=== PATIENT | male | born 1955 ===

== ENCOUNTER 2017-04-22 15:24 | Inpatient (IN) ==
[2017-04-22] MEDS ORDERED: ACETAMINOPHEN 325 MG TABLET PO PRN (15:46)
[2017-04-22] MEDS ORDERED: ONDANSETRON 4 MG/2 ML VIAL IV PRN (15:46)
[2017-04-22] MEDS ORDERED: GLUCAGON 1 MG VIAL IM PRN (15:52)
[2017-04-22] MEDS ORDERED: ALUMINUM/MAGNES/SIMETH MAX STR 30 ML UDCUP PO PRN (15:52)
[2017-04-22] MEDS ORDERED: BISACODYL 5 MG TABLET PO PRN (15:52)
[2017-04-22] MEDS ORDERED: DEXTROSE 50% 25 GM/50 ML VIAL IV PRN (15:52)
[2017-04-22] MEDS ORDERED: SKIN HEALING OINT (AQUAPHOR) 50 GM TUBE TOP PRN (16:09)
[2017-04-22] MEDS ORDERED: CHLORHEXIDINE 4% SOLN 118 ML BOTTLE TOP ONE (16:09)
[2017-04-22 18:04] LABS: Basophils # 0.1 10*3/uL (0.0-0.2); Basophils % 0.5 % (0.0-0.8); Eosinophils # 0.3 10*3/uL (0.0-0.87); Eosinophils % 2.3 % (0.00-10.9); Hemoglobin 12.4 GM/DL (14.0-18.0); Immature Granulocytes % 0.8 %; Immature Granulocytes Absolute 0.09 #; Lymphocytes # 1.9 10*3/uL (1.4-4.0); Lymphocytes % 17.5 % (21.2-54.2); Mean Corpuscular HGB Conc 33.5 GM/DL (32-36); Mean Corpuscular Hemoglobin 29 PG (27-34); Mean Corpuscular Volume 85.8 FL (87-102); Mean Platelet Volume 10.7 FL (9.6-12.0); Monocytes % 9.1 % (1.7-12.7); Neutrophils # 7.7 10*3/uL (1.4-7.4); Neutrophils % 69.8 % (38.7-73.9); Platelet Count 241 T/CUMM (130-400); Red Blood Count 4.31 MC/CUMM (3.8-5.5); Red Cell Distribution Width 13.8 % (9.3-17.3)
[2017-04-22 18:27] LABS: Alanine Aminotransferase 28 U/L (16-61); Albumin 3.4 G/DL (3.4-5.0); Alkaline Phosphatase 200 U/L (45-117); Aspartate Amino Transferase 25 U/L (0-37); Bilirubin,Total < 0.39 MG/DL (0.2-1.0); Blood Urea Nitrogen 19 MG/DL (7-18); Glucose 168 MG/DL (74-106); Osmolality,Calculated 278.8 MOS/KG (273-304); Potassium 4.2 MMOL/L (3.5-5.1); Sodium 137 MMOL/L (136-145); Total Protein 7.7 G/DL (6.4-8.3)
[2017-04-22] MEDS ORDERED: hydrALAZINE 20 MG/1 ML VIAL IV PRN (18:51)
[2017-04-22] MEDS: INSULIN REGULAR 100 UNIT/ML SUBCUT SCH ×2 (19:30→20:31)
[2017-04-22] MEDS: SODIUM CHLORIDE 0.45% 1,000 ML IV SCH (20:30)
[2017-04-22] MEDS: INSULIN GLARGINE 100 UNIT/ML SUBCUT SCH (20:31)
[2017-04-22] MEDS: METOPROLOL SUCCINATE XL 100 MG TABLET PO SCH (20:31)
[2017-04-22] MEDS: GABAPENTIN 100 MG CAPSULE PO SCH (20:31)
[2017-04-22] MEDS: SIMVASTATIN 20 MG TABLET PO SCH (20:31)
[2017-04-22] MEDS: glyBURIDE 5 MG TABLET PO SCH (20:31)
[2017-04-22] MEDS: CEFTAROLINE 600 MG in SODIUM CHLORIDE 0.9% 100 ML IV SCH (20:31)
[2017-04-23] MEDS: SODIUM HYPOCHLORITE 0.25% IRRIG 473 ML BOTTLE TOP SCH (08:07)
[2017-04-23] MEDS: glyBURIDE 5 MG TABLET PO SCH (08:07)
[2017-04-23] MEDS: ASPIRIN EC 81 MG TABLET PO SCH (08:07)
[2017-04-23] MEDS: INSULIN REGULAR 100 UNIT/ML SUBCUT SCH ×4 (08:07→21:42)
[2017-04-23] MEDS: GABAPENTIN 100 MG CAPSULE PO SCH ×2 (08:08→21:27)
[2017-04-23] MEDS: PANTOPRAZOLE 40 MG TABLET PO SCH (08:08)
[2017-04-23] MEDS: amLODIPine 10 MG TABLET PO SCH (08:50)
[2017-04-23] MEDS: CEFTAROLINE 600 MG in SODIUM CHLORIDE 0.9% 100 ML IV SCH ×2 (08:50→21:33)
[2017-04-23] MEDS: METOPROLOL SUCCINATE XL 100 MG TABLET PO SCH ×2 (08:50→21:28)
[2017-04-23] MEDS: SODIUM CHLORIDE 0.45% 1,000 ML IV SCH ×2 (08:51→21:43)
[2017-04-23] MEDS ORDERED: sitaGLIPtin 100 MG TABLET PO SCH (09:00)
[2017-04-23] MEDS ORDERED: LISINOPRIL 10 MG TABLET PO SCH (09:00)
[2017-04-23] MEDS ORDERED: BACITRACIN OINT 0.9 GM PACK TOP ONE (11:35)
[2017-04-23] MEDS ORDERED: HYDROmorphone 2 MG/1 ML VIAL IV PRN (11:57)
[2017-04-23] MEDS ORDERED: PROPOFOL 200 MG/20 ML VIAL IV ONE (12:29)
[2017-04-23] MEDS ORDERED: fentaNYL 100 MCG/2 ML VIAL ONE (12:29)
[2017-04-23] MEDS ORDERED: ONDANSETRON 4 MG/2 ML VIAL ONE (12:30)
[2017-04-23] MEDS ORDERED: MIDAZOLAM 2 MG/2 ML VIAL ONE (12:30)
[2017-04-23] MEDS ORDERED: SODIUM CHLORIDE 0.9% 100 ML IV ONE (12:30)
[2017-04-23] MEDS: LISINOPRIL 10 MG TABLET PO SCH (21:27)
[2017-04-23] MEDS: SIMVASTATIN 20 MG TABLET PO SCH (21:28)
[2017-04-23] MEDS: INSULIN GLARGINE 100 UNIT/ML SUBCUT SCH (21:30)
[2017-04-24] MEDS: SODIUM CHLORIDE 0.45% 1,000 ML IV SCH ×2 (03:21→19:53)
[2017-04-24 05:41] LABS: Calcium 8.2 MG/DL (8.5-10.1); Osmolality,Calculated 276.5 MOS/KG (273-304); Potassium 3.7 MMOL/L (3.5-5.1)
[2017-04-24 06:37] LABS: Basophils # 0.1 10*3/uL (0.0-0.2); Basophils % 0.6 % (0.0-0.8); Eosinophils # 0.2 10*3/uL (0.0-0.87); Eosinophils % 2.5 % (0.00-10.9); Hemoglobin 11.7 GM/DL (14.0-18.0); Immature Granulocytes % 1.2 %; Lymphocytes # 1.9 10*3/uL (1.4-4.0); Lymphocytes % 22.8 % (21.2-54.2); Mean Corpuscular HGB Conc 33.4 GM/DL (32-36); Mean Corpuscular Hemoglobin 28 PG (27-34); Mean Corpuscular Volume 84.7 FL (87-102); Neutrophils # 5.1 10*3/uL (1.4-7.4); Neutrophils % 60.9 % (38.7-73.9); Platelet Count 219 T/CUMM (130-400); Red Blood Count 4.13 MC/CUMM (3.8-5.5); Red Cell Distribution Width 13.8 % (9.3-17.3); White Blood Count 8.4 T/CUMM (4-12)
[2017-04-24] MEDS: INSULIN REGULAR 100 UNIT/ML SUBCUT SCH ×4 (08:46→20:09)
[2017-04-24] MEDS: ASPIRIN EC 81 MG TABLET PO SCH (09:23)
[2017-04-24] MEDS: GABAPENTIN 100 MG CAPSULE PO SCH ×2 (09:23→20:06)
[2017-04-24] MEDS: METOPROLOL SUCCINATE XL 100 MG TABLET PO SCH ×2 (09:24→20:06)
[2017-04-24] MEDS: LISINOPRIL 10 MG TABLET PO SCH ×2 (09:24→20:06)
[2017-04-24] MEDS: PANTOPRAZOLE 40 MG TABLET PO SCH (09:24)
[2017-04-24] MEDS: amLODIPine 10 MG TABLET PO SCH (09:24)
[2017-04-24] MEDS: ENOXAPARIN 40 MG/0.4 ML SYRINGE SUBCUT SCH (09:24)
[2017-04-24] MEDS: CEFTAROLINE 600 MG in SODIUM CHLORIDE 0.9% 100 ML IV SCH ×2 (10:15→19:43)
[2017-04-24] MEDS: SODIUM HYPOCHLORITE 0.25% IRRIG 473 ML BOTTLE TOP SCH (13:00)
[2017-04-24] MEDS: SIMVASTATIN 20 MG TABLET PO SCH (20:06)
[2017-04-24] MEDS: INSULIN GLARGINE 100 UNIT/ML SUBCUT SCH (20:09)
[2017-04-25 06:17] LABS: Risk Ratio 3.43; VLDL CHOLESTEROL 19.2 MG/DL
[2017-04-25] MEDS: INSULIN REGULAR 100 UNIT/ML SUBCUT SCH ×4 (08:08→21:20)
[2017-04-25] MEDS: PANTOPRAZOLE 40 MG TABLET PO SCH (08:34)
[2017-04-25] MEDS: amLODIPine 10 MG TABLET PO SCH (08:34)
[2017-04-25] MEDS: METOPROLOL SUCCINATE XL 100 MG TABLET PO SCH ×2 (08:34→21:20)
[2017-04-25] MEDS: LISINOPRIL 10 MG TABLET PO SCH ×2 (08:34→21:19)
[2017-04-25] MEDS: ENOXAPARIN 40 MG/0.4 ML SYRINGE SUBCUT SCH (08:34)
[2017-04-25] MEDS: GABAPENTIN 100 MG CAPSULE PO SCH ×2 (08:34→21:20)
[2017-04-25] MEDS: ASPIRIN EC 81 MG TABLET PO SCH (08:34)
[2017-04-25] MEDS: CEFTAROLINE 600 MG in SODIUM CHLORIDE 0.9% 100 ML IV SCH ×2 (08:37→21:22)
[2017-04-25] MEDS: SODIUM HYPOCHLORITE 0.25% IRRIG 473 ML BOTTLE TOP SCH (11:27)
[2017-04-25] MEDS: SODIUM CHLORIDE 0.45% 1,000 ML IV SCH ×2 (13:29→19:30)
[2017-04-25] MEDS: SIMVASTATIN 20 MG TABLET PO SCH (21:19)
[2017-04-25] MEDS: INSULIN GLARGINE 100 UNIT/ML SUBCUT SCH (21:20)
[2017-04-26] MEDS: SODIUM CHLORIDE 0.45% 1,000 ML IV SCH ×2 (05:20→22:32)
[2017-04-26] MEDS: INSULIN REGULAR 100 UNIT/ML SUBCUT SCH ×4 (08:48→21:21)
[2017-04-26] MEDS: CEFTAROLINE 600 MG in SODIUM CHLORIDE 0.9% 100 ML IV SCH (09:50)
[2017-04-26] MEDS: METOPROLOL SUCCINATE XL 100 MG TABLET PO SCH ×2 (09:54→21:22)
[2017-04-26] MEDS: ASPIRIN EC 81 MG TABLET PO SCH (09:55)
[2017-04-26] MEDS: LISINOPRIL 10 MG TABLET PO SCH ×2 (09:55→21:22)
[2017-04-26] MEDS: amLODIPine 10 MG TABLET PO SCH (09:55)
[2017-04-26] MEDS: GABAPENTIN 100 MG CAPSULE PO SCH ×2 (09:55→21:22)
[2017-04-26] MEDS: LEVOFLOXACIN 500 MG TABLET PO SCH (09:55)
[2017-04-26] MEDS: PANTOPRAZOLE 40 MG TABLET PO SCH (09:55)
[2017-04-26] MEDS: ENOXAPARIN 40 MG/0.4 ML SYRINGE SUBCUT SCH (09:56)
[2017-04-26] MEDS: SODIUM HYPOCHLORITE 0.25% IRRIG 473 ML BOTTLE TOP SCH (14:09)
[2017-04-26] MEDS: CEFTAROLINE 600 MG in SODIUM CHLORIDE 0.9% 50 ML IV SCH (21:20)
[2017-04-26] MEDS: INSULIN GLARGINE 100 UNIT/ML SUBCUT SCH (21:21)
[2017-04-26] MEDS: SIMVASTATIN 20 MG TABLET PO SCH (21:22)
[2017-04-27 06:26] LABS: Basophils % 0.6 % (0.0-0.8); Eosinophils # 0.3 10*3/uL (0.0-0.87); Eosinophils % 4.1 % (0.00-10.9); Hematocrit 32.9 VOL% (42.0-52.0); Hemoglobin 11.4 GM/DL (14.0-18.0); Immature Granulocytes % 0.3 %; Immature Granulocytes Absolute 0.02 #; Lymphocytes # 1.5 10*3/uL (1.4-4.0); Lymphocytes % 21.7 % (21.2-54.2); Mean Corpuscular HGB Conc 34.7 GM/DL (32-36); Mean Corpuscular Hemoglobin 29 PG (27-34); Mean Corpuscular Volume 83.3 FL (87-102); Monocytes # 0.8 10*3/uL (0.11-0.8); Monocytes % 11.5 % (1.7-12.7); Neutrophils # 4.2 10*3/uL (1.4-7.4); Neutrophils % 61.8 % (38.7-73.9); Platelet Count 247 T/CUMM (130-400); Red Blood Count 3.95 MC/CUMM (3.8-5.5); Red Cell Distribution Width 13.9 % (9.3-17.3); White Blood Count 6.8 T/CUMM (4-12)
[2017-04-27] MEDS: METOPROLOL SUCCINATE XL 100 MG TABLET PO SCH ×3 (06:32→20:50)
[2017-04-27] MEDS: LISINOPRIL 10 MG TABLET PO SCH ×3 (06:32→20:50)
[2017-04-27] MEDS: amLODIPine 10 MG TABLET PO SCH ×2 (06:32→09:17)
[2017-04-27] MEDS ORDERED: BUPIVACAINE 0.25% 50 ML VIAL ONE (06:42)
[2017-04-27 07:02] LABS: Alanine Aminotransferase 19 U/L (16-61); Albumin 2.7 G/DL (3.4-5.0); Alkaline Phosphatase 140 U/L (45-117); Aspartate Amino Transferase 17 U/L (0-37); Bilirubin,Total < 0.39 MG/DL (0.2-1.0); Blood Urea Nitrogen 12 MG/DL (7-18); Glucose 180 MG/DL (74-106); Osmolality,Calculated 283.4 MOS/KG (273-304); Potassium 3.9 MMOL/L (3.5-5.1); Sodium 140 MMOL/L (136-145); Total Protein 6.5 G/DL (6.4-8.3)
[2017-04-27] MEDS ORDERED: GENTAMICIN 0.1% CREAM 15 GM TUBE TOP ONE (07:44)
[2017-04-27] MEDS ORDERED: CHLORHEXIDINE 4% SOLN 118 ML BOTTLE TOP ONE (08:00)
[2017-04-27] MEDS ORDERED: PROPOFOL 200 MG/20 ML VIAL IV ONE (08:13)
[2017-04-27] MEDS ORDERED: SEVOFLURANE 1 UNIT/15 MINUTE INH ONE (08:13)
[2017-04-27] MEDS ORDERED: METOCLOPRAMIDE 10 MG/2 ML VIAL ONE (08:14)
[2017-04-27] MEDS ORDERED: fentaNYL 100 MCG/2 ML VIAL ONE (08:14)
[2017-04-27] MEDS ORDERED: ONDANSETRON 4 MG/2 ML VIAL ONE (08:14)
[2017-04-27] MEDS: INSULIN REGULAR 100 UNIT/ML SUBCUT SCH ×4 (09:13→20:51)
[2017-04-27] MEDS: CEFTAROLINE 600 MG in SODIUM CHLORIDE 0.9% 50 ML IV SCH ×2 (09:56→20:49)
[2017-04-27] MEDS: GABAPENTIN 100 MG CAPSULE PO SCH ×2 (09:58→20:50)
[2017-04-27] MEDS: ENOXAPARIN 40 MG/0.4 ML SYRINGE SUBCUT SCH (09:58)
[2017-04-27] MEDS: PANTOPRAZOLE 40 MG TABLET PO SCH (09:59)
[2017-04-27] MEDS: LEVOFLOXACIN 500 MG TABLET PO SCH (09:59)
[2017-04-27] MEDS: ASPIRIN EC 81 MG TABLET PO SCH (09:59)
[2017-04-27] MEDS: GENTAMICIN 0.1% OINT 15 GM TUBE TOP SCH ×3 (13:00→20:58)
[2017-04-27] MEDS: SODIUM CHLORIDE 0.45% 1,000 ML IV SCH (13:00)
[2017-04-27 18:32] LABS: Apearance,Urine CLEAR (Clear); Bilirubin,Urine Negative (Negative); Blood, Urine Small mg/dL (Negative); Glucose,Urine (UA) >=500 mg/dL (Negative); Ketones,Urine Negative (Negative); Nitrite,Urine Negative (Negative); Protein,Urine Negative; RBC,Urine 1 /HPF (0-4); Urine Color Straw (Yellow); Urine Specific Gravity 1.008 (1.001-1.035)
[2017-04-27] MEDS: SIMVASTATIN 20 MG TABLET PO SCH (20:51)
[2017-04-27] MEDS: INSULIN GLARGINE 100 UNIT/ML SUBCUT SCH (20:51)
[2017-04-28] MEDS: SODIUM CHLORIDE 0.45% 1,000 ML IV SCH (01:29)
[2017-04-28 06:57] LABS: Basophils % 0.5 % (0.0-0.8); Eosinophils # 0.3 10*3/uL (0.0-0.87); Eosinophils % 4.2 % (0.00-10.9); Hemoglobin 10.8 GM/DL (14.0-18.0); Immature Granulocytes % 0.4 %; Immature Granulocytes Absolute 0.03 #; Lymphocytes # 1.7 10*3/uL (1.4-4.0); Mean Corpuscular HGB Conc 33.8 GM/DL (32-36); Mean Corpuscular Hemoglobin 29 PG (27-34); Mean Corpuscular Volume 85.3 FL (87-102); Mean Platelet Volume 10.6 FL (9.6-12.0); Monocytes % 12.6 % (1.7-12.7); Neutrophils # 4.8 10*3/uL (1.4-7.4); Neutrophils % 60.3 % (38.7-73.9); Platelet Count 238 T/CUMM (130-400); Red Blood Count 3.75 MC/CUMM (3.8-5.5); White Blood Count 7.9 T/CUMM (4-12)
[2017-04-28 07:33] LABS: Calcium 8.1 MG/DL (8.5-10.1); Osmolality,Calculated 279.4 MOS/KG (273-304); Potassium 3.8 MMOL/L (3.5-5.1)
[2017-04-28] MEDS: INSULIN REGULAR 100 UNIT/ML SUBCUT SCH ×2 (08:15→12:10)
[2017-04-28] MEDS: GENTAMICIN 0.1% OINT 15 GM TUBE TOP SCH (08:15)
[2017-04-28] MEDS: METOPROLOL SUCCINATE XL 100 MG TABLET PO SCH (09:12)
[2017-04-28] MEDS: ASPIRIN EC 81 MG TABLET PO SCH (09:13)
[2017-04-28] MEDS: LEVOFLOXACIN 500 MG TABLET PO SCH (09:13)
[2017-04-28] MEDS: GABAPENTIN 100 MG CAPSULE PO SCH (09:13)
[2017-04-28] MEDS: LISINOPRIL 10 MG TABLET PO SCH (09:14)
[2017-04-28] MEDS: amLODIPine 10 MG TABLET PO SCH (09:14)
[2017-04-28] MEDS: PANTOPRAZOLE 40 MG TABLET PO SCH (09:14)
[2017-04-28] MEDS: CEFTAROLINE 600 MG in SODIUM CHLORIDE 0.9% 50 ML IV SCH (09:14)
[2017-04-28] MEDS: ENOXAPARIN 40 MG/0.4 ML SYRINGE SUBCUT SCH (09:16)
[2017-04-28 11:12] VITALS: BP 148/70
== END 2017-04-28 12:10 | disposition home or self-care (01) | DRG 623 ==
LOC: N.3E 16:02
PROVIDERS: ADMIT Specialist; ATTEND Specialist

== ENCOUNTER 2017-06-16 06:13 | Inpatient (IN) ==
[2017-06-14 11:32] LABS: Basophils % 0.4 % (0.0-0.8); Eosinophils # 0.2 10*3/uL (0.0-0.87); Eosinophils % 2.2 % (0.00-10.9); Hematocrit 34.8 VOL% (42.0-52.0); Hemoglobin 11.7 GM/DL (14.0-18.0); Immature Granulocytes % 0.4 %; Immature Granulocytes Absolute 0.04 #; Lymphocytes # 1.8 10*3/uL (1.4-4.0); Lymphocytes % 17.5 % (21.2-54.2); Mean Corpuscular HGB Conc 33.6 GM/DL (32-36); Mean Corpuscular Hemoglobin 29 PG (27-34); Mean Corpuscular Volume 85.9 FL (87-102); Mean Platelet Volume 10.3 FL (9.6-12.0); Monocytes # 0.8 10*3/uL (0.11-0.8); Monocytes % 7.6 % (1.7-12.7); Neutrophils # 7.5 10*3/uL (1.4-7.4); Neutrophils % 71.9 % (38.7-73.9); Platelet Count 259 T/CUMM (130-400); Red Blood Count 4.05 MC/CUMM (3.8-5.5); White Blood Count 10.5 T/CUMM (4-12)
[2017-06-14 12:24] LABS: Alanine Aminotransferase 19 U/L (16-61); Albumin 3.3 G/DL (3.4-5.0); Alkaline Phosphatase 192 U/L (45-117); Aspartate Amino Transferase 17 U/L (0-37); Bilirubin,Total < 0.39 MG/DL (0.2-1.0); Blood Urea Nitrogen 15 MG/DL (7-18); Calcium 8.5 MG/DL (8.5-10.1); Glucose 305 MG/DL (74-106); Osmolality,Calculated 281.1 MOS/KG (273-304); Potassium 3.9 MMOL/L (3.5-5.1); Sodium 135 MMOL/L (136-145); Total Protein 7.5 G/DL (6.4-8.3)
[~2017-06-16 06:13] MED LIST: LEVOFLOXACIN INJ 100 ML IV ONE; LEVOFLOXACIN INJ 500 MG in PREMIX 1 EACH IV ONE
[2017-06-16] MEDS: LACTATED RINGERS 1,000 ML IV SCH (07:14)
[2017-06-16] MEDS ORDERED: FAMOTIDINE 20 MG TABLET PO ONE (07:56)
[2017-06-16] MEDS ORDERED: DIAZEPAM 5 MG TABLET PO ONE (07:56)
[2017-06-16] MEDS ORDERED: FAMOTIDINE 20 MG TABLET ONE (08:00)
[2017-06-16] MEDS ORDERED: DIAZEPAM 5 MG TABLET ONE (08:00)
[2017-06-16] MEDS ORDERED: BENZOIN COMPOUND TINCTURE 58 ML BOTTLE TOP ONE (12:13)
[2017-06-16] MEDS ORDERED: BISACODYL 5 MG TABLET PO PRN (12:17)
[2017-06-16] MEDS ORDERED: DEXTROSE 50% 25 GM/50 ML VIAL IV PRN (12:17)
[2017-06-16] MEDS ORDERED: ONDANSETRON 4 MG/2 ML VIAL IV PRN (12:17)
[2017-06-16] MEDS ORDERED: HYDROmorphone 2 MG/1 ML VIAL IV PRN (12:17)
[2017-06-16] MEDS ORDERED: GLUCAGON 1 MG VIAL IM PRN (12:17)
[2017-06-16] MEDS ORDERED: ACETAMINOPHEN 325 MG TABLET PO PRN (12:17)
[2017-06-16] MEDS ORDERED: SKIN HEALING OINT (AQUAPHOR) 50 GM TUBE TOP PRN (12:29)
[2017-06-16] MEDS ORDERED: CHLORHEXIDINE 4% SOLN 118 ML BOTTLE TOP ONE (12:29)
[2017-06-16] MEDS ORDERED: PROPOFOL 200 MG/20 ML VIAL IV ONE (12:45)
[2017-06-16] MEDS ORDERED: fentaNYL 100 MCG/2 ML VIAL ONE (12:46)
[2017-06-16] MEDS ORDERED: MIDAZOLAM 2 MG/2 ML VIAL ONE (12:46)
[2017-06-16] MEDS ORDERED: KETAMINE 500 MG/10 ML VIAL ONE (12:47)
[2017-06-16 15:51] LABS: Troponin I Only < 0.015 NG/ML (0.00-0.045)
[2017-06-16] MEDS: SODIUM CHLORIDE 0.9% 1,000 ML IV SCH (16:24)
[2017-06-16] MEDS: INSULIN REGULAR 100 UNIT/ML SUBCUT SCH ×2 (17:11→20:48)
[2017-06-16 18:08] LABS: Troponin I Only < 0.015 NG/ML (0.00-0.045)
[2017-06-16] MEDS: amLODIPine 10 MG TABLET PO SCH (20:33)
[2017-06-16] MEDS: LISINOPRIL 10 MG TABLET PO SCH (20:33)
[2017-06-16] MEDS: METOPROLOL SUCCINATE XL 100 MG TABLET PO SCH (20:34)
[2017-06-16] MEDS: glyBURIDE 5 MG TABLET PO SCH (20:34)
[2017-06-16] MEDS: GABAPENTIN 100 MG CAPSULE PO SCH (20:34)
[2017-06-16] MEDS: INSULIN GLARGINE 100 UNIT/ML SUBCUT SCH (20:47)
[2017-06-16] MEDS: SIMVASTATIN 20 MG TABLET PO SCH (20:48)
[2017-06-16 21:18] LABS: Troponin I Only < 0.015 NG/ML (0.00-0.045)
[2017-06-17] MEDS: SODIUM CHLORIDE 0.9% 1,000 ML IV SCH ×2 (01:21→04:59)
[2017-06-17 05:32] LABS: Basophils # 0.1 10*3/uL (0.0-0.2); Basophils % 0.5 % (0.0-0.8); Eosinophils # 0.2 10*3/uL (0.0-0.87); Eosinophils % 1.5 % (0.00-10.9); Hematocrit 32.8 VOL% (42.0-52.0); Immature Granulocytes % 0.2 %; Immature Granulocytes Absolute 0.02 #; Lymphocytes % 19.9 % (21.2-54.2); Mean Corpuscular HGB Conc 33.5 GM/DL (32-36); Mean Corpuscular Hemoglobin 28 PG (27-34); Mean Corpuscular Volume 84.3 FL (87-102); Mean Platelet Volume 10.5 FL (9.6-12.0); Monocytes % 10.2 % (1.7-12.7); Neutrophils # 6.7 10*3/uL (1.4-7.4); Neutrophils % 67.7 % (38.7-73.9); Platelet Count 267 T/CUMM (130-400); Red Blood Count 3.89 MC/CUMM (3.8-5.5); Red Cell Distribution Width 13.9 % (9.3-17.3); White Blood Count 9.9 T/CUMM (4-12)
[2017-06-17 06:10] LABS: Calcium 8.7 MG/DL (8.5-10.1); Osmolality,Calculated 274.8 MOS/KG (273-304); Potassium 3.8 MMOL/L (3.5-5.1)
[2017-06-17 06:22] LABS: Risk Ratio 3.6; VLDL CHOLESTEROL 26.2 MG/DL
[2017-06-17] MEDS: LEVOFLOXACIN INJ 500 MG in PREMIX 1 EACH IV SCH (07:00)
[2017-06-17] MEDS: ENOXAPARIN 40 MG/0.4 ML SYRINGE SUBCUT SCH (07:01)
[2017-06-17] MEDS: ASPIRIN EC 81 MG TABLET PO SCH (09:25)
[2017-06-17] MEDS: glyBURIDE 5 MG TABLET PO SCH ×2 (09:25→20:55)
[2017-06-17] MEDS: GABAPENTIN 100 MG CAPSULE PO SCH ×2 (09:25→20:54)
[2017-06-17] MEDS: METOPROLOL SUCCINATE XL 100 MG TABLET PO SCH ×2 (09:25→20:59)
[2017-06-17] MEDS: PANTOPRAZOLE 40 MG TABLET PO SCH (09:25)
[2017-06-17] MEDS: sitaGLIPtin 100 MG TABLET PO SCH (09:26)
[2017-06-17] MEDS: INSULIN REGULAR 100 UNIT/ML SUBCUT SCH ×4 (09:41→20:52)
[2017-06-17] MEDS: LACTATED RINGERS 1,000 ML IV SCH (09:41)
[2017-06-17] MEDS: SODIUM HYPOCHLORITE 0.25% IRRIG 473 ML BOTTLE TOP SCH (09:42)
[2017-06-17] MEDS: INSULIN GLARGINE 100 UNIT/ML SUBCUT SCH (20:52)
[2017-06-17] MEDS: LISINOPRIL 10 MG TABLET PO SCH (20:54)
[2017-06-17] MEDS: amLODIPine 10 MG TABLET PO SCH (20:55)
[2017-06-17] MEDS: SIMVASTATIN 20 MG TABLET PO SCH (20:56)
[2017-06-18] MEDS: LEVOFLOXACIN INJ 500 MG in PREMIX 1 EACH IV SCH (06:50)
[2017-06-18] MEDS: LACTATED RINGERS 1,000 ML IV SCH (07:10)
[2017-06-18] MEDS: ENOXAPARIN 40 MG/0.4 ML SYRINGE SUBCUT SCH (07:17)
[2017-06-18] MEDS ORDERED: SKIN HEALING OINT (AQUAPHOR) 50 GM TUBE TOP PRN (07:34)
[2017-06-18] MEDS: sitaGLIPtin 100 MG TABLET PO SCH (08:29)
[2017-06-18] MEDS: GABAPENTIN 100 MG CAPSULE PO SCH (08:29)
[2017-06-18] MEDS: ASPIRIN EC 81 MG TABLET PO SCH (08:29)
[2017-06-18] MEDS: METOPROLOL SUCCINATE XL 100 MG TABLET PO SCH (08:30)
[2017-06-18] MEDS: PANTOPRAZOLE 40 MG TABLET PO SCH (08:30)
[2017-06-18] MEDS: glyBURIDE 5 MG TABLET PO SCH (08:30)
[2017-06-18] MEDS: INSULIN REGULAR 100 UNIT/ML SUBCUT SCH ×3 (08:30→16:45)
[2017-06-18] MEDS: SODIUM HYPOCHLORITE 0.25% IRRIG 473 ML BOTTLE TOP SCH (08:50)
[2017-06-18] MEDS ORDERED: SODIUM HYPOCHLORITE 0.25% IRRIG 473 ML BOTTLE TOP SCH (09:00)
[2017-06-18 17:47] VITALS: BP 152/76
== END 2017-06-18 19:05 | disposition home or self-care (01) | DRG 629 ==
LOC: N.OR 06:13 → N.SDSINP 06:14 → N.3E 12:17
PROVIDERS: ADMIT Specialist; ATTEND Specialist

== ENCOUNTER 2017-06-29 12:30 | Inpatient (IN) ==
[2017-06-29 14:02] LABS: Basophils % 0.2 % (0.0-0.8); Eosinophils % 0.1 % (0.00-10.9); Hematocrit 31.1 VOL% (42.0-52.0); Hemoglobin 10.3 GM/DL (14.0-18.0); Immature Granulocytes % 0.7 %; Immature Granulocytes Absolute 0.12 #; Lymphocytes # 1.3 10*3/uL (1.4-4.0); Lymphocytes % 7.5 % (21.2-54.2); Mean Corpuscular HGB Conc 33.1 GM/DL (32-36); Mean Corpuscular Hemoglobin 28 PG (27-34); Mean Corpuscular Volume 83.6 FL (87-102); Mean Platelet Volume 10.3 FL (9.6-12.0); Monocytes # 1.6 10*3/uL (0.11-0.8); Monocytes % 9.2 % (1.7-12.7); Neutrophils # 14.6 10*3/uL (1.4-7.4); Neutrophils % 82.3 % (38.7-73.9); Platelet Count 463 T/CUMM (130-400); Red Blood Count 3.72 MC/CUMM (3.8-5.5); Red Cell Distribution Width 14.6 % (9.3-17.3); White Blood Count 17.7 T/CUMM (4-12)
[2017-06-29] MEDS ORDERED: ONDANSETRON 4 MG/2 ML VIAL IV PRN (14:11)
[2017-06-29] MEDS ORDERED: HYDROmorphone 2 MG/1 ML VIAL IV PRN (14:11)
[2017-06-29] MEDS ORDERED: ALUMINUM/MAGNES/SIMETH MAX STR 30 ML UDCUP PO PRN (14:11)
[2017-06-29] MEDS ORDERED: ACETAMINOPHEN 325 MG TABLET PO PRN (14:11)
[2017-06-29] MEDS ORDERED: GLUCAGON 1 MG VIAL IM PRN (14:11)
[2017-06-29] MEDS ORDERED: DEXTROSE 50% 25 GM/50 ML VIAL IV PRN (14:11)
[2017-06-29 14:15] LABS: Albumin 2.5 G/DL (3.4-5.0); Bilirubin,Total 0.7 MG/DL (0.2-1.0); Calcium 8.3 MG/DL (8.5-10.1); Osmolality,Calculated 267.5 MOS/KG (273-304); Potassium 4.3 MMOL/L (3.5-5.1); Total Protein 7.4 G/DL (6.4-8.3)
[2017-06-29] MEDS ORDERED: CHLORHEXIDINE 4% SOLN 118 ML BOTTLE TOP ONE (14:31)
[2017-06-29] MEDS: GENTAMICIN 0.1% OINT 15 GM TUBE TOP SCH ×2 (16:00→21:26)
[2017-06-29] MEDS: ERGOCALCIFEROL 50,000 UNIT CAPSULE PO SCH (16:00)
[2017-06-29] MEDS: SODIUM CHLORIDE 0.45% 1,000 ML IV SCH ×2 (16:00→22:42)
[2017-06-29] MEDS: SODIUM HYPOCHLORITE 0.25% IRRIG 473 ML BOTTLE TOP SCH (16:00)
[2017-06-29] MEDS: INSULIN REGULAR 100 UNIT/ML SUBCUT SCH ×2 (16:00→21:22)
[2017-06-29] MEDS: ACETAMINOPHEN 325 MG TABLET PO PRN ×2 (16:00→23:57)
[2017-06-29] MEDS: metroNIDAZOLE INJ 500 MG in PREMIX 1 EACH IV SCH ×2 (16:00→23:08)
[2017-06-29 16:20] LABS: Apearance,Urine CLEAR (Clear); Bilirubin,Urine Negative (Negative); Blood, Urine Small mg/dL (Negative); Glucose,Urine (UA) 50 mg/dL (Negative); Ketones,Urine 20 mg/dL (Negative); Mucus,Urine Occasional /LPF (Occasional); Nitrite,Urine Negative (Negative); Protein,Urine 100 MG/DL; RBC,Urine 2 /HPF (0-4); Urine Color Yellow (Yellow); Urine Specific Gravity 1.015 (1.001-1.035); WBC,Urine 1 /HPF (0-6)
[2017-06-29] MEDS: PIPERACILLIN/TAZOBACTAM 3,375 MG in SODIUM CHLORIDE 0.9% 100 ML IV SCH (17:45)
[2017-06-29] MEDS: GABAPENTIN 100 MG CAPSULE PO SCH (21:24)
[2017-06-29] MEDS: METOPROLOL SUCCINATE XL 100 MG TABLET PO SCH (21:24)
[2017-06-29] MEDS: ACETYLCYSTEINE 600 MG CAPSULE PO SCH (21:24)
[2017-06-29] MEDS: SIMVASTATIN 20 MG TABLET PO SCH (21:25)
[2017-06-29] MEDS: DOCUSATE SODIUM 100 MG CAPSULE PO SCH (21:25)
[2017-06-29] MEDS: LISINOPRIL 10 MG TABLET PO SCH (21:25)
[2017-06-29] MEDS: amLODIPine 10 MG TABLET PO SCH (21:25)
[2017-06-29] MEDS: INSULIN GLARGINE 100 UNIT/ML SUBCUT SCH (21:25)
[2017-06-29] MEDS: glyBURIDE 5 MG TABLET PO SCH (21:25)
[2017-06-30] MEDS: PIPERACILLIN/TAZOBACTAM 3,375 MG in SODIUM CHLORIDE 0.9% 100 ML IV SCH ×3 (01:30→20:44)
[2017-06-30 05:47] LABS: Basophils # 0.1 10*3/uL (0.0-0.2); Basophils % 0.3 % (0.0-0.8); Eosinophils % 0.1 % (0.00-10.9); Hematocrit 27.8 VOL% (42.0-52.0); Hemoglobin 9.5 GM/DL (14.0-18.0); Immature Granulocytes % 0.8 %; Immature Granulocytes Absolute 0.15 #; Lymphocytes # 1.7 10*3/uL (1.4-4.0); Lymphocytes % 9.2 % (21.2-54.2); Mean Corpuscular HGB Conc 34.2 GM/DL (32-36); Mean Corpuscular Hemoglobin 28 PG (27-34); Mean Corpuscular Volume 81.5 FL (87-102); Monocytes # 1.6 10*3/uL (0.11-0.8); Neutrophils # 14.5 10*3/uL (1.4-7.4); Neutrophils % 80.6 % (38.7-73.9); Platelet Count 477 T/CUMM (130-400); Red Blood Count 3.41 MC/CUMM (3.8-5.5); Red Cell Distribution Width 14.7 % (9.3-17.3)
[2017-06-30] MEDS: metroNIDAZOLE INJ 500 MG in PREMIX 1 EACH IV SCH ×2 (06:00→19:09)
[2017-06-30] MEDS: SODIUM CHLORIDE 0.45% 1,000 ML IV SCH (06:06)
[2017-06-30 06:21] LABS: Calcium 7.9 MG/DL (8.5-10.1); Osmolality,Calculated 273.2 MOS/KG (273-304)
[2017-06-30] MEDS: INSULIN REGULAR 100 UNIT/ML SUBCUT SCH ×4 (07:19→20:45)
[2017-06-30] MEDS ORDERED: SODIUM HYPOCHLORITE 0.25% IRRIG 473 ML BOTTLE TOP SCH (09:00)
[2017-06-30] MEDS ORDERED: LEVOFLOXACIN 500 MG TABLET PO SCH (09:00)
[2017-06-30] MEDS: ENOXAPARIN 40 MG/0.4 ML SYRINGE SUBCUT SCH (09:48)
[2017-06-30] MEDS: glyBURIDE 5 MG TABLET PO SCH ×2 (09:50→20:45)
[2017-06-30] MEDS: PANTOPRAZOLE 40 MG TABLET PO SCH (09:51)
[2017-06-30] MEDS: DOCUSATE SODIUM 100 MG CAPSULE PO SCH ×2 (09:51→20:45)
[2017-06-30] MEDS: ACETYLCYSTEINE 600 MG CAPSULE PO SCH ×2 (09:51→20:45)
[2017-06-30] MEDS: sitaGLIPtin 100 MG TABLET PO SCH (09:51)
[2017-06-30] MEDS: METOPROLOL SUCCINATE XL 100 MG TABLET PO SCH ×2 (09:51→20:45)
[2017-06-30] MEDS: ASPIRIN EC 81 MG TABLET PO SCH (09:52)
[2017-06-30] MEDS: SODIUM HYPOCHLORITE 0.25% IRRIG 473 ML BOTTLE TOP SCH (09:52)
[2017-06-30] MEDS: TAMSULOSIN 0.4 MG CAPSULE PO SCH (09:52)
[2017-06-30] MEDS: PENTOXIFYLLINE 400 MG TABLET PO SCH ×3 (10:57→20:45)
[2017-06-30] MEDS: GENTAMICIN 0.1% OINT 15 GM TUBE TOP SCH ×3 (10:58→20:44)
[2017-06-30] MEDS: VANCOMYCIN INJ 1,500 MG in SODIUM CHLORIDE 0.9% 500 ML IV SCH (14:09)
[2017-06-30] MEDS: LISINOPRIL 10 MG TABLET PO SCH (20:44)
[2017-06-30] MEDS: GABAPENTIN 100 MG CAPSULE PO SCH (20:45)
[2017-06-30] MEDS: SIMVASTATIN 20 MG TABLET PO SCH (20:45)
[2017-06-30] MEDS: amLODIPine 10 MG TABLET PO SCH (20:45)
[2017-06-30] MEDS: INSULIN GLARGINE 100 UNIT/ML SUBCUT SCH (20:46)
[2017-07-01] MEDS: SODIUM CHLORIDE 0.45% 1,000 ML IV SCH ×2 (00:44→11:13)
[2017-07-01] MEDS: VANCOMYCIN INJ 1,500 MG in SODIUM CHLORIDE 0.9% 500 ML IV SCH ×2 (00:44→14:12)
[2017-07-01] MEDS: metroNIDAZOLE INJ 500 MG in PREMIX 1 EACH IV SCH ×2 (04:47→11:13)
[2017-07-01 05:32] LABS: Basophils # 0.1 10*3/uL (0.0-0.2); Basophils % 0.2 % (0.0-0.8); Eosinophils % 0.1 % (0.00-10.9); Hematocrit 27.2 VOL% (42.0-52.0); Immature Granulocytes Absolute 0.24 #; Lymphocytes # 1.9 10*3/uL (1.4-4.0); Lymphocytes % 7.5 % (21.2-54.2); Mean Corpuscular HGB Conc 33.1 GM/DL (32-36); Mean Corpuscular Hemoglobin 28 PG (27-34); Mean Corpuscular Volume 84.5 FL (87-102); Monocytes # 2.5 10*3/uL (0.11-0.8); Monocytes % 10.2 % (1.7-12.7); Neutrophils # 19.9 10*3/uL (1.4-7.4); Platelet Count 485 T/CUMM (130-400); Red Blood Count 3.22 MC/CUMM (3.8-5.5); Red Cell Distribution Width 14.8 % (9.3-17.3); White Blood Count 24.5 T/CUMM (4-12)
[2017-07-01] MEDS ORDERED: ceFAZolin 2,000 MG in PREMIX 1 EACH IV ONE (06:00)
[2017-07-01 06:01] LABS: Lymphocytes 12 % (20-55); Nucleated Red Blood Cells 1 (0-5); Segmented Neutrophils 84 % (50-85); Total Cells Counted 100
[2017-07-01 06:02] LABS: Platelet Estimate Normal
[2017-07-01 06:05] LABS: Calcium 7.7 MG/DL (8.5-10.1); Osmolality,Calculated 271.8 MOS/KG (273-304); Potassium 4.1 MMOL/L (3.5-5.1)
[2017-07-01] MEDS: PIPERACILLIN/TAZOBACTAM 3,375 MG in SODIUM CHLORIDE 0.9% 100 ML IV SCH ×3 (06:10→21:53)
[2017-07-01] MEDS ORDERED: LIDOCAINE 1% 50 ML VIAL ONE (06:38)
[2017-07-01] MEDS: INSULIN REGULAR 100 UNIT/ML SUBCUT SCH ×4 (07:14→20:54)
[2017-07-01] MEDS ORDERED: ONDANSETRON 4 MG/2 ML VIAL IV PRN (08:30)
[2017-07-01] MEDS ORDERED: HYDROmorphone 2 MG/1 ML VIAL IV PRN (08:30)
[2017-07-01] MEDS ORDERED: CHLORHEXIDINE 4% SOLN 118 ML BOTTLE TOP ONE (08:38)
[2017-07-01] MEDS ORDERED: SEVOFLURANE 1 UNIT/15 MINUTE INH ONE (08:51)
[2017-07-01] MEDS ORDERED: PROPOFOL 200 MG/20 ML VIAL IV ONE (08:51)
[2017-07-01] MEDS ORDERED: ACETAMINOPHEN 1,000 MG/100 ML VIAL IV ONE (08:54)
[2017-07-01] MEDS ORDERED: ePHEDrine 50 MG/ML AMP ONE (08:54)
[2017-07-01] MEDS ORDERED: fentaNYL 100 MCG/2 ML VIAL ONE (08:54)
[2017-07-01] MEDS ORDERED: KETOROLAC 30 MG/1 ML VIAL ONE (08:54)
[2017-07-01] MEDS ORDERED: MIDAZOLAM 2 MG/2 ML VIAL ONE (08:54)
[2017-07-01] MEDS: SODIUM HYPOCHLORITE 0.25% IRRIG 473 ML BOTTLE TOP SCH (09:13)
[2017-07-01] MEDS: TAMSULOSIN 0.4 MG CAPSULE PO SCH (11:15)
[2017-07-01] MEDS: ACETYLCYSTEINE 600 MG CAPSULE PO SCH ×2 (11:15→21:52)
[2017-07-01] MEDS: PANTOPRAZOLE 40 MG TABLET PO SCH (11:16)
[2017-07-01] MEDS: PENTOXIFYLLINE 400 MG TABLET PO SCH ×3 (11:16→21:52)
[2017-07-01] MEDS: ENOXAPARIN 40 MG/0.4 ML SYRINGE SUBCUT SCH (11:16)
[2017-07-01] MEDS: sitaGLIPtin 100 MG TABLET PO SCH (11:16)
[2017-07-01] MEDS: METOPROLOL SUCCINATE XL 100 MG TABLET PO SCH ×2 (11:16→21:53)
[2017-07-01] MEDS: DOCUSATE SODIUM 100 MG CAPSULE PO SCH ×2 (11:16→21:53)
[2017-07-01] MEDS: glyBURIDE 5 MG TABLET PO SCH ×2 (11:17→21:52)
[2017-07-01] MEDS: ASPIRIN EC 81 MG TABLET PO SCH (11:17)
[2017-07-01 13:04] LABS: Hematocrit 24.9 VOL% (42.0-52.0); Hemoglobin 8.3 GM/DL (14.0-18.0)
[2017-07-01] MEDS: ceFAZolin 2,000 MG in PREMIX 1 EACH IV SCH ×2 (13:35→21:54)
[2017-07-01] MEDS: INSULIN GLARGINE 100 UNIT/ML SUBCUT SCH (20:54)
[2017-07-01] MEDS: LISINOPRIL 10 MG TABLET PO SCH (21:52)
[2017-07-01] MEDS: GABAPENTIN 100 MG CAPSULE PO SCH (21:52)
[2017-07-01] MEDS: amLODIPine 10 MG TABLET PO SCH (21:53)
[2017-07-01] MEDS: SIMVASTATIN 20 MG TABLET PO SCH (21:53)
[2017-07-01] MEDS: BISACODYL 5 MG TABLET PO PRN (21:54)
[2017-07-02] MEDS: VANCOMYCIN INJ 1,500 MG in SODIUM CHLORIDE 0.9% 500 ML IV SCH ×2 (01:11→14:18)
[2017-07-02] MEDS: SODIUM CHLORIDE 0.45% 1,000 ML IV SCH ×4 (02:46→18:55)
[2017-07-02 04:41] LABS: Basophils % 0.2 % (0.0-0.8); Eosinophils % 0.2 % (0.00-10.9); Hematocrit 25.4 VOL% (42.0-52.0); Hemoglobin 8.5 GM/DL (14.0-18.0); Lymphocytes # 1.5 10*3/uL (1.4-4.0); Lymphocytes % 7.6 % (21.2-54.2); Mean Corpuscular HGB Conc 33.5 GM/DL (32-36); Mean Corpuscular Hemoglobin 28 PG (27-34); Mean Corpuscular Volume 84.4 FL (87-102); Mean Platelet Volume 9.6 FL (9.6-12.0); Monocytes # 1.5 10*3/uL (0.11-0.8); Monocytes % 7.7 % (1.7-12.7); Neutrophils # 16.5 10*3/uL (1.4-7.4); Neutrophils % 83.3 % (38.7-73.9); Platelet Count 495 T/CUMM (130-400); Red Blood Count 3.01 MC/CUMM (3.8-5.5); Red Cell Distribution Width 15.1 % (9.3-17.3); White Blood Count 19.8 T/CUMM (4-12)
[2017-07-02] MEDS: PIPERACILLIN/TAZOBACTAM 3,375 MG in SODIUM CHLORIDE 0.9% 100 ML IV SCH ×3 (05:00→20:28)
[2017-07-02 05:33] LABS: Albumin 1.9 G/DL (3.4-5.0); Bilirubin,Total 0.5 MG/DL (0.2-1.0); Calcium 7.5 MG/DL (8.5-10.1); Osmolality,Calculated 271.8 MOS/KG (273-304); Potassium 4.3 MMOL/L (3.5-5.1)
[2017-07-02] MEDS: INSULIN REGULAR 100 UNIT/ML SUBCUT SCH ×4 (07:30→20:28)
[2017-07-02] MEDS: ENOXAPARIN 40 MG/0.4 ML SYRINGE SUBCUT SCH (10:16)
[2017-07-02] MEDS: ACETYLCYSTEINE 600 MG CAPSULE PO SCH ×2 (10:17→20:27)
[2017-07-02] MEDS: DOCUSATE SODIUM 100 MG CAPSULE PO SCH ×2 (10:17→20:28)
[2017-07-02] MEDS: TAMSULOSIN 0.4 MG CAPSULE PO SCH (10:17)
[2017-07-02] MEDS: ASPIRIN EC 81 MG TABLET PO SCH (10:17)
[2017-07-02] MEDS: METOPROLOL SUCCINATE XL 100 MG TABLET PO SCH ×2 (10:18→20:27)
[2017-07-02] MEDS: PANTOPRAZOLE 40 MG TABLET PO SCH (10:18)
[2017-07-02] MEDS: PENTOXIFYLLINE 400 MG TABLET PO SCH ×3 (10:18→20:27)
[2017-07-02] MEDS: glyBURIDE 5 MG TABLET PO SCH ×2 (10:19→20:28)
[2017-07-02] MEDS: sitaGLIPtin 100 MG TABLET PO SCH (10:19)
[2017-07-02] MEDS: SODIUM HYPOCHLORITE 0.25% IRRIG 473 ML BOTTLE TOP SCH (18:43)
[2017-07-02] MEDS: GABAPENTIN 100 MG CAPSULE PO SCH (20:27)
[2017-07-02] MEDS: LISINOPRIL 10 MG TABLET PO SCH (20:27)
[2017-07-02] MEDS: SIMVASTATIN 20 MG TABLET PO SCH (20:27)
[2017-07-02] MEDS: amLODIPine 10 MG TABLET PO SCH (20:27)
[2017-07-02] MEDS: INSULIN GLARGINE 100 UNIT/ML SUBCUT SCH (20:28)
[2017-07-03] MEDS: SODIUM CHLORIDE 0.45% 1,000 ML IV SCH ×3 (01:39→21:37)
[2017-07-03] MEDS: VANCOMYCIN INJ 1,500 MG in SODIUM CHLORIDE 0.9% 500 ML IV SCH ×2 (01:39→13:45)
[2017-07-03] MEDS: PIPERACILLIN/TAZOBACTAM 3,375 MG in SODIUM CHLORIDE 0.9% 100 ML IV SCH ×3 (05:00→19:53)
[2017-07-03 05:20] LABS: Basophils # 0.1 10*3/uL (0.0-0.2); Basophils % 0.3 % (0.0-0.8); Eosinophils # 0.2 10*3/uL (0.0-0.87); Eosinophils % 1.4 % (0.00-10.9); Hematocrit 26.4 VOL% (42.0-52.0); Hemoglobin 8.7 GM/DL (14.0-18.0); Immature Granulocytes % 0.9 %; Immature Granulocytes Absolute 0.14 #; Lymphocytes # 1.6 10*3/uL (1.4-4.0); Lymphocytes % 9.9 % (21.2-54.2); Mean Corpuscular Hemoglobin 28 PG (27-34); Mean Corpuscular Volume 84.1 FL (87-102); Mean Platelet Volume 9.6 FL (9.6-12.0); Monocytes # 1.3 10*3/uL (0.11-0.8); Monocytes % 8.2 % (1.7-12.7); Neutrophils # 12.7 10*3/uL (1.4-7.4); Neutrophils % 79.3 % (38.7-73.9); Platelet Count 561 T/CUMM (130-400); Red Blood Count 3.14 MC/CUMM (3.8-5.5); Red Cell Distribution Width 15.1 % (9.3-17.3); White Blood Count 16.1 T/CUMM (4-12)
[2017-07-03 05:58] LABS: Calcium 7.5 MG/DL (8.5-10.1); Potassium 4.1 MMOL/L (3.5-5.1)
[2017-07-03] MEDS: INSULIN REGULAR 100 UNIT/ML SUBCUT SCH ×4 (07:05→21:31)
[2017-07-03] MEDS: ASPIRIN EC 81 MG TABLET PO SCH (08:47)
[2017-07-03] MEDS: ACETYLCYSTEINE 600 MG CAPSULE PO SCH ×2 (08:47→21:30)
[2017-07-03] MEDS: ENOXAPARIN 40 MG/0.4 ML SYRINGE SUBCUT SCH (08:47)
[2017-07-03] MEDS: DOCUSATE SODIUM 100 MG CAPSULE PO SCH ×2 (08:47→21:28)
[2017-07-03] MEDS: TAMSULOSIN 0.4 MG CAPSULE PO SCH (08:47)
[2017-07-03] MEDS: PENTOXIFYLLINE 400 MG TABLET PO SCH ×3 (08:48→21:30)
[2017-07-03] MEDS: METOPROLOL SUCCINATE XL 100 MG TABLET PO SCH ×2 (08:48→21:28)
[2017-07-03] MEDS: PANTOPRAZOLE 40 MG TABLET PO SCH (08:48)
[2017-07-03] MEDS: glyBURIDE 5 MG TABLET PO SCH ×2 (09:00→21:29)
[2017-07-03] MEDS: sitaGLIPtin 100 MG TABLET PO SCH (09:00)
[2017-07-03] MEDS: SODIUM HYPOCHLORITE 0.25% IRRIG 473 ML BOTTLE TOP SCH (18:30)
[2017-07-03] MEDS: SKIN HEALING OINT (AQUAPHOR) 50 GM TUBE TOP PRN (18:30)
[2017-07-03] MEDS: GABAPENTIN 100 MG CAPSULE PO SCH (21:28)
[2017-07-03] MEDS: SIMVASTATIN 20 MG TABLET PO SCH (21:29)
[2017-07-03] MEDS: amLODIPine 10 MG TABLET PO SCH (21:29)
[2017-07-03] MEDS: LISINOPRIL 10 MG TABLET PO SCH (21:30)
[2017-07-03] MEDS: INSULIN GLARGINE 100 UNIT/ML SUBCUT SCH (21:31)
[2017-07-04] MEDS: VANCOMYCIN INJ 1,500 MG in SODIUM CHLORIDE 0.9% 500 ML IV SCH ×2 (01:15→13:28)
[2017-07-04] MEDS: SODIUM CHLORIDE 0.45% 1,000 ML IV SCH ×3 (03:39→20:45)
[2017-07-04] MEDS: PIPERACILLIN/TAZOBACTAM 3,375 MG in SODIUM CHLORIDE 0.9% 100 ML IV SCH ×3 (03:40→20:40)
[2017-07-04] MEDS: INSULIN REGULAR 100 UNIT/ML SUBCUT SCH ×4 (07:15→20:44)
[2017-07-04] MEDS: ASPIRIN EC 81 MG TABLET PO SCH (09:44)
[2017-07-04] MEDS: glyBURIDE 5 MG TABLET PO SCH ×2 (09:44→20:43)
[2017-07-04] MEDS: DOCUSATE SODIUM 100 MG CAPSULE PO SCH ×2 (09:44→20:43)
[2017-07-04] MEDS: ENOXAPARIN 40 MG/0.4 ML SYRINGE SUBCUT SCH (09:44)
[2017-07-04] MEDS: TAMSULOSIN 0.4 MG CAPSULE PO SCH (09:45)
[2017-07-04] MEDS: PANTOPRAZOLE 40 MG TABLET PO SCH (09:45)
[2017-07-04] MEDS: sitaGLIPtin 100 MG TABLET PO SCH (09:45)
[2017-07-04] MEDS: ACETYLCYSTEINE 600 MG CAPSULE PO SCH ×2 (09:45→20:44)
[2017-07-04] MEDS: METOPROLOL SUCCINATE XL 100 MG TABLET PO SCH ×2 (09:45→20:44)
[2017-07-04] MEDS: BISACODYL 5 MG TABLET PO PRN (09:46)
[2017-07-04] MEDS: PENTOXIFYLLINE 400 MG TABLET PO SCH ×3 (09:46→20:44)
[2017-07-04] MEDS: SKIN HEALING OINT (AQUAPHOR) 50 GM TUBE TOP PRN (10:45)
[2017-07-04] MEDS: SODIUM HYPOCHLORITE 0.25% IRRIG 473 ML BOTTLE TOP SCH (10:45)
[2017-07-04] MEDS: amLODIPine 10 MG TABLET PO SCH (20:43)
[2017-07-04] MEDS: SIMVASTATIN 20 MG TABLET PO SCH (20:43)
[2017-07-04] MEDS: GABAPENTIN 100 MG CAPSULE PO SCH (20:44)
[2017-07-04] MEDS: LISINOPRIL 10 MG TABLET PO SCH (20:44)
[2017-07-04] MEDS: INSULIN GLARGINE 100 UNIT/ML SUBCUT SCH (20:45)
[2017-07-04] MEDS ORDERED: metroNIDAZOLE 500 MG TABLET PO SCH (21:00)
[2017-07-05] MEDS: VANCOMYCIN INJ 1,500 MG in SODIUM CHLORIDE 0.9% 500 ML IV SCH (00:52)
[2017-07-05] MEDS: PIPERACILLIN/TAZOBACTAM 3,375 MG in SODIUM CHLORIDE 0.9% 100 ML IV SCH (04:43)
[2017-07-05] MEDS: SODIUM CHLORIDE 0.45% 1,000 ML IV SCH ×3 (05:24→18:07)
[2017-07-05 05:45] LABS: Basophils # 0.1 10*3/uL (0.0-0.2); Basophils % 0.5 % (0.0-0.8); Eosinophils # 0.2 10*3/uL (0.0-0.87); Eosinophils % 1.5 % (0.00-10.9); Hematocrit 25.9 VOL% (42.0-52.0); Hemoglobin 8.5 GM/DL (14.0-18.0); Immature Granulocytes % 1.3 %; Immature Granulocytes Absolute 0.16 #; Lymphocytes # 1.5 10*3/uL (1.4-4.0); Lymphocytes % 12.5 % (21.2-54.2); Mean Corpuscular HGB Conc 32.8 GM/DL (32-36); Mean Corpuscular Hemoglobin 28 PG (27-34); Mean Corpuscular Volume 84.6 FL (87-102); Mean Platelet Volume 9.3 FL (9.6-12.0); Monocytes # 1.4 10*3/uL (0.11-0.8); Monocytes % 11.2 % (1.7-12.7); Neutrophils # 8.8 10*3/uL (1.4-7.4); Platelet Count 572 T/CUMM (130-400); Red Blood Count 3.06 MC/CUMM (3.8-5.5); Red Cell Distribution Width 14.9 % (9.3-17.3); White Blood Count 12.1 T/CUMM (4-12)
[2017-07-05 06:11] LABS: Calcium 7.7 MG/DL (8.5-10.1); Osmolality,Calculated 271.7 MOS/KG (273-304); Potassium 3.6 MMOL/L (3.5-5.1)
[2017-07-05] MEDS: INSULIN REGULAR 100 UNIT/ML SUBCUT SCH ×4 (07:24→21:21)
[2017-07-05] MEDS: AMPICILLIN/SULBACTAM 3,000 MG in SODIUM CHLORIDE 0.9% 100 ML IV SCH ×3 (08:53→21:19)
[2017-07-05] MEDS: METOPROLOL SUCCINATE XL 100 MG TABLET PO SCH ×2 (08:55→21:20)
[2017-07-05] MEDS: TAMSULOSIN 0.4 MG CAPSULE PO SCH (08:55)
[2017-07-05] MEDS: PENTOXIFYLLINE 400 MG TABLET PO SCH ×3 (08:55→21:20)
[2017-07-05] MEDS: PANTOPRAZOLE 40 MG TABLET PO SCH (08:55)
[2017-07-05] MEDS: sitaGLIPtin 100 MG TABLET PO SCH (08:55)
[2017-07-05] MEDS: glyBURIDE 5 MG TABLET PO SCH ×2 (08:55→21:20)
[2017-07-05] MEDS: ACETYLCYSTEINE 600 MG CAPSULE PO SCH ×2 (08:55→21:20)
[2017-07-05] MEDS: ASPIRIN EC 81 MG TABLET PO SCH (08:55)
[2017-07-05] MEDS: DOCUSATE SODIUM 100 MG CAPSULE PO SCH ×2 (08:55→21:20)
[2017-07-05] MEDS: ENOXAPARIN 40 MG/0.4 ML SYRINGE SUBCUT SCH (11:28)
[2017-07-05] MEDS: SODIUM HYPOCHLORITE 0.25% IRRIG 473 ML BOTTLE TOP SCH (11:29)
[2017-07-05] MEDS: GABAPENTIN 100 MG CAPSULE PO SCH (21:19)
[2017-07-05] MEDS: amLODIPine 10 MG TABLET PO SCH (21:20)
[2017-07-05] MEDS: INSULIN GLARGINE 100 UNIT/ML SUBCUT SCH (21:20)
[2017-07-05] MEDS: LISINOPRIL 10 MG TABLET PO SCH (21:20)
[2017-07-05] MEDS: SIMVASTATIN 20 MG TABLET PO SCH (21:47)
[2017-07-06] MEDS: AMPICILLIN/SULBACTAM 3,000 MG in SODIUM CHLORIDE 0.9% 100 ML IV SCH ×4 (02:50→20:36)
[2017-07-06] MEDS: SODIUM CHLORIDE 0.45% 1,000 ML IV SCH ×2 (02:50→15:19)
[2017-07-06] MEDS: INSULIN REGULAR 100 UNIT/ML SUBCUT SCH ×4 (08:15→20:37)
[2017-07-06] MEDS: ENOXAPARIN 40 MG/0.4 ML SYRINGE SUBCUT SCH (09:46)
[2017-07-06] MEDS: PENTOXIFYLLINE 400 MG TABLET PO SCH ×3 (09:46→20:37)
[2017-07-06] MEDS: PANTOPRAZOLE 40 MG TABLET PO SCH (09:46)
[2017-07-06] MEDS: glyBURIDE 5 MG TABLET PO SCH ×2 (09:46→20:37)
[2017-07-06] MEDS: ASPIRIN EC 81 MG TABLET PO SCH (09:46)
[2017-07-06] MEDS: sitaGLIPtin 100 MG TABLET PO SCH (09:46)
[2017-07-06] MEDS: ACETYLCYSTEINE 600 MG CAPSULE PO SCH ×2 (09:46→20:37)
[2017-07-06] MEDS: TAMSULOSIN 0.4 MG CAPSULE PO SCH (09:46)
[2017-07-06] MEDS: METOPROLOL SUCCINATE XL 100 MG TABLET PO SCH ×2 (09:46→20:37)
[2017-07-06] MEDS: DOCUSATE SODIUM 100 MG CAPSULE PO SCH ×2 (09:46→20:37)
[2017-07-06] MEDS: SODIUM HYPOCHLORITE 0.25% IRRIG 473 ML BOTTLE TOP SCH (11:57)
[2017-07-06] MEDS: ERGOCALCIFEROL 50,000 UNIT CAPSULE PO SCH (17:24)
[2017-07-06] MEDS: INSULIN GLARGINE 100 UNIT/ML SUBCUT SCH (20:37)
[2017-07-06] MEDS: amLODIPine 10 MG TABLET PO SCH (20:37)
[2017-07-06] MEDS: SIMVASTATIN 20 MG TABLET PO SCH (20:37)
[2017-07-06] MEDS: LISINOPRIL 10 MG TABLET PO SCH (20:37)
[2017-07-06] MEDS: GABAPENTIN 100 MG CAPSULE PO SCH (20:37)
[2017-07-07] MEDS: AMPICILLIN/SULBACTAM 3,000 MG in SODIUM CHLORIDE 0.9% 100 ML IV SCH ×2 (01:33→09:23)
[2017-07-07] MEDS: SODIUM CHLORIDE 0.45% 1,000 ML IV SCH ×2 (01:33→09:21)
[2017-07-07 03:07] LABS: Basophils % 0.3 % (0.0-0.8); Eosinophils % 0.1 % (0.00-10.9); Hematocrit 26.1 VOL% (42.0-52.0); Hemoglobin 8.7 GM/DL (14.0-18.0); Immature Granulocytes % 1.1 %; Immature Granulocytes Absolute 0.16 #; Lymphocytes # 2.7 10*3/uL (1.4-4.0); Lymphocytes % 18.4 % (21.2-54.2); Mean Corpuscular HGB Conc 33.3 GM/DL (32-36); Mean Corpuscular Hemoglobin 28 PG (27-34); Mean Corpuscular Volume 82.6 FL (87-102); Mean Platelet Volume 9.1 FL (9.6-12.0); Monocytes # 1.8 10*3/uL (0.11-0.8); Monocytes % 12.5 % (1.7-12.7); Neutrophils # 9.9 10*3/uL (1.4-7.4); Neutrophils % 67.6 % (38.7-73.9); Platelet Count 618 T/CUMM (130-400); Red Blood Count 3.16 MC/CUMM (3.8-5.5); Red Cell Distribution Width 15.4 % (9.3-17.3); White Blood Count 14.6 T/CUMM (4-12)
[2017-07-07 03:35] LABS: Calcium 7.7 MG/DL (8.5-10.1); Osmolality,Calculated 271.7 MOS/KG (273-304); Potassium 3.5 MMOL/L (3.5-5.1)
[2017-07-07] MEDS: INSULIN REGULAR 100 UNIT/ML SUBCUT SCH ×2 (09:15→13:18)
[2017-07-07] MEDS: ENOXAPARIN 40 MG/0.4 ML SYRINGE SUBCUT SCH (09:24)
[2017-07-07] MEDS: ACETYLCYSTEINE 600 MG CAPSULE PO SCH (09:26)
[2017-07-07] MEDS: ASPIRIN EC 81 MG TABLET PO SCH (09:26)
[2017-07-07] MEDS: PENTOXIFYLLINE 400 MG TABLET PO SCH (09:26)
[2017-07-07] MEDS: sitaGLIPtin 100 MG TABLET PO SCH (09:27)
[2017-07-07] MEDS: METOPROLOL SUCCINATE XL 100 MG TABLET PO SCH (09:27)
[2017-07-07] MEDS: glyBURIDE 5 MG TABLET PO SCH (09:27)
[2017-07-07] MEDS: PANTOPRAZOLE 40 MG TABLET PO SCH (09:28)
[2017-07-07] MEDS: TAMSULOSIN 0.4 MG CAPSULE PO SCH (09:28)
[2017-07-07] MEDS: DOCUSATE SODIUM 100 MG CAPSULE PO SCH (09:30)
[2017-07-07 11:43] VITALS: BP 145/78
[2017-07-07] MEDS: SODIUM HYPOCHLORITE 0.25% IRRIG 473 ML BOTTLE TOP SCH (12:35)
== END 2017-07-07 14:26 | DRG 982 ==
LOC: N.ED 12:30 → N.EDINP 14:11 → N.3E 15:31
PROVIDERS: ADMIT Specialist; ATTEND Specialist

== ENCOUNTER 2017-09-15 06:14 | Inpatient (IN) ==
[2017-09-10 10:14] LABS: Basophils # 0.1 10*3/uL (0.0-0.2); Basophils % 0.3 % (0.0-0.8); Eosinophils # 0.7 10*3/uL (0.0-0.87); Eosinophils % 4.8 % (0.00-10.9); Hematocrit 33.1 VOL% (42.0-52.0); Hemoglobin 10.8 GM/DL (14.0-18.0); Immature Granulocytes % 0.4 %; Immature Granulocytes Absolute 0.06 #; Lymphocytes # 2.7 10*3/uL (1.4-4.0); Lymphocytes % 18.3 % (21.2-54.2); Mean Corpuscular HGB Conc 32.6 GM/DL (32-36); Mean Corpuscular Hemoglobin 26 PG (27-34); Mean Corpuscular Volume 80.1 FL (87-102); Mean Platelet Volume 8.9 FL (9.6-12.0); Monocytes # 1.1 10*3/uL (0.11-0.8); Monocytes % 7.6 % (1.7-12.7); Neutrophils # 9.9 10*3/uL (1.4-7.4); Neutrophils % 68.6 % (38.7-73.9); Platelet Count 502 T/CUMM (130-400); Red Blood Count 4.13 MC/CUMM (3.8-5.5); Red Cell Distribution Width 14.6 % (9.3-17.3); White Blood Count 14.5 T/CUMM (4-12)
[2017-09-10 10:50] LABS: Alanine Aminotransferase 14 U/L (16-61); Albumin 2.4 G/DL (3.4-5.0); Alkaline Phosphatase 182 U/L (45-117); Aspartate Amino Transferase 17 U/L (0-37); Bilirubin,Total < 0.39 MG/DL (0.2-1.0); Blood Urea Nitrogen 15 MG/DL (7-18); Calcium 9.1 MG/DL (8.5-10.1); Glucose 225 MG/DL (74-106); Osmolality,Calculated 273.4 MOS/KG (273-304); Potassium 4.2 MMOL/L (3.5-5.1); Sodium 133 MMOL/L (136-145); Total Protein 8.5 G/DL (6.4-8.3)
[~2017-09-15 06:14] MED LIST changes: -LEVOFLOXACIN INJ 100 ML IV ONE; -LEVOFLOXACIN INJ 500 MG in PREMIX 1 EACH IV ONE; +ceFAZolin 1,000 MG in SYRINGE 1 EACH IV ONE
[2017-09-15] MEDS: LACTATED RINGERS 1,000 ML IV SCH ×4 (10:22→21:31)
[2017-09-15] MEDS ORDERED: ceFAZolin 1,000 MG VIAL ONE (10:45)
[2017-09-15] MEDS ORDERED: PROPOFOL 200 MG/20 ML VIAL IV ONE (11:59)
[2017-09-15] MEDS ORDERED: MIDAZOLAM 2 MG/2 ML VIAL ONE (12:00)
[2017-09-15] MEDS ORDERED: PHENYLEPHRINE 1 MG/10 ML SYRINGE IV ONE (12:00)
[2017-09-15] MEDS ORDERED: ePHEDrine 50 MG/ML AMP ONE (12:00)
[2017-09-15] MEDS ORDERED: LACTATED RINGERS 1,000 ML IV ONE (12:00)
[2017-09-15] MEDS ORDERED: DESFLURANE 1 UNIT/15 MINUTE INH ONE (12:00)
[2017-09-15] MEDS ORDERED: fentaNYL 100 MCG/2 ML VIAL ONE (12:00)
[2017-09-15] MEDS ORDERED: ONDANSETRON 4 MG/2 ML VIAL ONE ×2 (12:00→12:26)
[2017-09-15] MEDS ORDERED: MORPHINE 10 MG/1 ML VIAL ONE (12:26)
[2017-09-15] MEDS ORDERED: ONDANSETRON 4 MG/2 ML VIAL IV PRN ×2 (12:31→14:30)
[2017-09-15] MEDS: MORPHINE 10 MG/1 ML VIAL IV PRN ×5 (12:40→13:50)
[2017-09-15] MEDS ORDERED: GLUCAGON 1 MG VIAL IM PRN (14:30)
[2017-09-15] MEDS ORDERED: HYDROmorphone 2 MG/1 ML VIAL IV PRN (14:30)
[2017-09-15] MEDS ORDERED: DEXTROSE 50% 25 GM/50 ML VIAL IV PRN (14:30)
[2017-09-15] MEDS ORDERED: PROMETHAZINE 25 MG/1 ML VIAL IM PRN (14:30)
[2017-09-15] MEDS: KETOROLAC 30 MG/1 ML VIAL IV SCH ×2 (15:29→21:22)
[2017-09-15] MEDS: GABAPENTIN 100 MG CAPSULE PO SCH ×2 (15:29→21:20)
[2017-09-15] MEDS: INSULIN REGULAR 100 UNIT/ML SUBCUT SCH ×2 (16:57→21:21)
[2017-09-15] MEDS: hydrOXYzine HCL 25 MG TABLET PO PRN (19:11)
[2017-09-15] MEDS: amLODIPine 5 MG TABLET PO SCH (21:20)
[2017-09-15] MEDS: METOPROLOL SUCCINATE XL 100 MG TABLET PO SCH (21:20)
[2017-09-15] MEDS: LISINOPRIL 10 MG TABLET PO SCH (21:20)
[2017-09-15] MEDS: ENOXAPARIN 40 MG/0.4 ML SYRINGE SUBCUT SCH (21:21)
[2017-09-16] MEDS: hydrOXYzine HCL 25 MG TABLET PO PRN (02:31)
[2017-09-16] MEDS: KETOROLAC 30 MG/1 ML VIAL IV SCH ×4 (02:31→21:42)
[2017-09-16] MEDS: LACTATED RINGERS 1,000 ML IV SCH ×2 (06:19→14:58)
[2017-09-16 07:17] LABS: Basophils # 0.1 10*3/uL (0.0-0.2); Basophils % 0.5 % (0.0-0.8); Eosinophils # 0.3 10*3/uL (0.0-0.87); Eosinophils % 2.1 % (0.00-10.9); Hematocrit 25.5 VOL% (42.0-52.0); Hemoglobin 8.2 GM/DL (14.0-18.0); Immature Granulocytes % 0.5 %; Immature Granulocytes Absolute 0.06 #; Lymphocytes # 1.6 10*3/uL (1.4-4.0); Mean Corpuscular HGB Conc 32.2 GM/DL (32-36); Mean Corpuscular Hemoglobin 26 PG (27-34); Mean Corpuscular Volume 80.2 FL (87-102); Mean Platelet Volume 9.7 FL (9.6-12.0); Monocytes # 1.1 10*3/uL (0.11-0.8); Neutrophils # 9.2 10*3/uL (1.4-7.4); Neutrophils % 74.9 % (38.7-73.9); Platelet Count 437 T/CUMM (130-400); Red Blood Count 3.18 MC/CUMM (3.8-5.5); Red Cell Distribution Width 14.6 % (9.3-17.3); White Blood Count 12.3 T/CUMM (4-12)
[2017-09-16 07:43] LABS: Calcium 7.9 MG/DL (8.5-10.1); Osmolality,Calculated 274.4 MOS/KG (273-304); Potassium 4.6 MMOL/L (3.5-5.1)
[2017-09-16] MEDS: PANTOPRAZOLE 40 MG VIAL IV SCH (10:03)
[2017-09-16] MEDS: SIMVASTATIN 20 MG TABLET PO SCH (10:04)
[2017-09-16] MEDS: GABAPENTIN 100 MG CAPSULE PO SCH ×3 (10:04→21:42)
[2017-09-16] MEDS: TAMSULOSIN 0.4 MG CAPSULE PO SCH (10:04)
[2017-09-16] MEDS: ASPIRIN EC 81 MG TABLET PO SCH (10:05)
[2017-09-16] MEDS: METOPROLOL SUCCINATE XL 100 MG TABLET PO SCH ×2 (10:05→21:42)
[2017-09-16] MEDS: INSULIN REGULAR 100 UNIT/ML SUBCUT SCH ×4 (10:26→21:43)
[2017-09-16] MEDS: BACITRACIN OINT 28.35 GM TUBE TOP SCH (15:50)
[2017-09-16] MEDS: ENOXAPARIN 40 MG/0.4 ML SYRINGE SUBCUT SCH (21:43)
[2017-09-16] MEDS: LISINOPRIL 10 MG TABLET PO SCH (21:44)
[2017-09-16] MEDS: amLODIPine 5 MG TABLET PO SCH (21:44)
[2017-09-17] MEDS: KETOROLAC 30 MG/1 ML VIAL IV SCH ×4 (01:55→21:28)
[2017-09-17 06:39] LABS: Basophils # 0.1 10*3/uL (0.0-0.2); Basophils % 0.4 % (0.0-0.8); Eosinophils # 0.5 10*3/uL (0.0-0.87); Eosinophils % 4.5 % (0.00-10.9); Hematocrit 22.9 VOL% (42.0-52.0); Hemoglobin 7.5 GM/DL (14.0-18.0); Immature Granulocytes % 0.4 %; Immature Granulocytes Absolute 0.05 #; Lymphocytes # 1.6 10*3/uL (1.4-4.0); Lymphocytes % 14.3 % (21.2-54.2); Mean Corpuscular HGB Conc 32.8 GM/DL (32-36); Mean Corpuscular Hemoglobin 26 PG (27-34); Mean Corpuscular Volume 79.8 FL (87-102); Mean Platelet Volume 9.6 FL (9.6-12.0); Monocytes # 1.1 10*3/uL (0.11-0.8); Monocytes % 9.9 % (1.7-12.7); Neutrophils % 70.5 % (38.7-73.9); Platelet Count 405 T/CUMM (130-400); Red Blood Count 2.87 MC/CUMM (3.8-5.5); Red Cell Distribution Width 14.8 % (9.3-17.3); White Blood Count 11.3 T/CUMM (4-12)
[2017-09-17 07:10] LABS: Calcium 7.7 MG/DL (8.5-10.1)
[2017-09-17] MEDS: INSULIN REGULAR 100 UNIT/ML SUBCUT SCH ×4 (09:09→21:33)
[2017-09-17] MEDS: TAMSULOSIN 0.4 MG CAPSULE PO SCH (09:10)
[2017-09-17] MEDS: ASPIRIN EC 81 MG TABLET PO SCH (09:10)
[2017-09-17] MEDS: SIMVASTATIN 20 MG TABLET PO SCH (09:10)
[2017-09-17] MEDS: GABAPENTIN 100 MG CAPSULE PO SCH ×3 (09:10→21:30)
[2017-09-17] MEDS: METOPROLOL SUCCINATE XL 100 MG TABLET PO SCH ×2 (09:10→21:30)
[2017-09-17] MEDS: PANTOPRAZOLE 40 MG VIAL IV SCH (09:11)
[2017-09-17] MEDS: BACITRACIN OINT 28.35 GM TUBE TOP SCH (09:12)
[2017-09-17] MEDS: LACTATED RINGERS 1,000 ML IV SCH ×2 (09:13→11:42)
[2017-09-17] MEDS: hydrOXYzine HCL 25 MG TABLET PO PRN (16:02)
[2017-09-17] MEDS: LISINOPRIL 10 MG TABLET PO SCH (21:29)
[2017-09-17] MEDS: ENOXAPARIN 40 MG/0.4 ML SYRINGE SUBCUT SCH (21:30)
[2017-09-17] MEDS: amLODIPine 5 MG TABLET PO SCH (21:30)
[2017-09-17] MEDS: INSULIN GLARGINE 100 UNIT/ML SUBCUT SCH (21:33)
[2017-09-18] MEDS: KETOROLAC 30 MG/1 ML VIAL IV SCH ×2 (03:22→10:08)
[2017-09-18 05:35] LABS: Basophils % 0.2 % (0.0-0.8); Eosinophils # 0.5 10*3/uL (0.0-0.87); Eosinophils % 5.2 % (0.00-10.9); Hematocrit 22.1 VOL% (42.0-52.0); Hemoglobin 7.2 GM/DL (14.0-18.0); Immature Granulocytes % 0.4 %; Immature Granulocytes Absolute 0.04 #; Lymphocytes # 2.3 10*3/uL (1.4-4.0); Lymphocytes % 22.9 % (21.2-54.2); Mean Corpuscular HGB Conc 32.6 GM/DL (32-36); Mean Corpuscular Hemoglobin 26 PG (27-34); Mean Corpuscular Volume 80.4 FL (87-102); Mean Platelet Volume 9.4 FL (9.6-12.0); Monocytes # 1.1 10*3/uL (0.11-0.8); Monocytes % 10.9 % (1.7-12.7); Neutrophils % 60.4 % (38.7-73.9); Platelet Count 400 T/CUMM (130-400); Red Blood Count 2.75 MC/CUMM (3.8-5.5); White Blood Count 9.9 T/CUMM (4-12)
[2017-09-18] MEDS: LACTATED RINGERS 1,000 ML IV SCH (08:04)
[2017-09-18] MEDS: PANTOPRAZOLE 40 MG VIAL IV SCH (10:03)
[2017-09-18] MEDS: ASPIRIN EC 81 MG TABLET PO SCH (10:04)
[2017-09-18] MEDS: SIMVASTATIN 20 MG TABLET PO SCH (10:04)
[2017-09-18] MEDS: METOPROLOL SUCCINATE XL 100 MG TABLET PO SCH ×2 (10:04→20:57)
[2017-09-18] MEDS: GABAPENTIN 100 MG CAPSULE PO SCH ×3 (10:04→20:57)
[2017-09-18] MEDS: TAMSULOSIN 0.4 MG CAPSULE PO SCH (10:04)
[2017-09-18] MEDS: BACITRACIN OINT 28.35 GM TUBE TOP SCH (10:59)
[2017-09-18] MEDS: INSULIN REGULAR 100 UNIT/ML SUBCUT SCH ×4 (10:59→20:58)
[2017-09-18] MEDS: LISINOPRIL 10 MG TABLET PO SCH (20:57)
[2017-09-18] MEDS: amLODIPine 5 MG TABLET PO SCH (20:57)
[2017-09-18] MEDS: ENOXAPARIN 40 MG/0.4 ML SYRINGE SUBCUT SCH (20:57)
[2017-09-18] MEDS: INSULIN GLARGINE 100 UNIT/ML SUBCUT SCH (20:58)
[2017-09-19] MEDS: PANTOPRAZOLE 40 MG VIAL IV SCH (08:38)
[2017-09-19] MEDS: METOPROLOL SUCCINATE XL 100 MG TABLET PO SCH ×2 (08:39→20:48)
[2017-09-19] MEDS: SIMVASTATIN 20 MG TABLET PO SCH (08:39)
[2017-09-19] MEDS: ASPIRIN EC 81 MG TABLET PO SCH (08:39)
[2017-09-19] MEDS: GABAPENTIN 100 MG CAPSULE PO SCH ×4 (08:39→20:49)
[2017-09-19] MEDS: TAMSULOSIN 0.4 MG CAPSULE PO SCH (08:39)
[2017-09-19] MEDS: INSULIN REGULAR 100 UNIT/ML SUBCUT SCH ×4 (10:34→21:10)
[2017-09-19] MEDS: BACITRACIN OINT 28.35 GM TUBE TOP SCH (10:38)
[2017-09-19] MEDS: LACTATED RINGERS 1,000 ML IV SCH (13:28)
[2017-09-19] MEDS: LISINOPRIL 10 MG TABLET PO SCH (20:48)
[2017-09-19] MEDS: amLODIPine 5 MG TABLET PO SCH (20:49)
[2017-09-19] MEDS: ENOXAPARIN 40 MG/0.4 ML SYRINGE SUBCUT SCH (20:49)
[2017-09-19] MEDS: INSULIN GLARGINE 100 UNIT/ML SUBCUT SCH (21:10)
[2017-09-20] MEDS: METOPROLOL SUCCINATE XL 100 MG TABLET PO SCH (10:42)
[2017-09-20] MEDS: ASPIRIN EC 81 MG TABLET PO SCH (10:42)
[2017-09-20] MEDS: TAMSULOSIN 0.4 MG CAPSULE PO SCH (10:42)
[2017-09-20] MEDS: PANTOPRAZOLE 40 MG VIAL IV SCH (10:43)
[2017-09-20] MEDS: INSULIN REGULAR 100 UNIT/ML SUBCUT SCH ×2 (10:43→12:22)
[2017-09-20] MEDS: SIMVASTATIN 20 MG TABLET PO SCH (10:43)
[2017-09-20] MEDS: GABAPENTIN 100 MG CAPSULE PO SCH (10:49)
[2017-09-20] MEDS: BACITRACIN OINT 28.35 GM TUBE TOP SCH (10:51)
[2017-09-20 14:27] VITALS: BP 142/71
== END 2017-09-20 15:02 | disposition other institution (70) | DRG 617 ==
LOC: N.OR 06:14 → N.SDSINP 06:15 → N.5E 14:21
PROVIDERS: ADMIT Surgery; ATTEND Surgery

== ENCOUNTER 2022-03-14 20:00 | Inpatient (IN) ==
[2022-03-14] MEDS ORDERED: VANCOMYCIN INJ 1,000 MG in SODIUM CHLORIDE 0.9% 250 ML IV STA (21:55)
[2022-03-14] MEDS ORDERED: GLUCAGON 1 MG VIAL IM PRN (22:15)
[2022-03-14] MEDS ORDERED: hydrALAZINE 20 MG/1 ML VIAL IV PRN (22:15)
[2022-03-14] MEDS ORDERED: DEXTROSE 10% 250 ML BAG IV PRN (22:52)
[2022-03-14] MEDS: SODIUM CHLORIDE 0.9% 1,000 ML IV SCH (23:32)
[2022-03-15] MEDS: LEVOTHYROXINE 50 MCG TABLET PO SCH (05:34)
[2022-03-15 06:16] LABS: Basophils # 0.1 10*3/uL (0.0-0.2); Basophils % 0.3 % (0.0-0.8); Eosinophils % 0.1 % (0.00-10.9); Hematocrit 37.6 VOL% (42.0-52.0); Hemoglobin 12.6 GM/DL (14.0-18.0); Immature Granulocytes % 3.4 %; Immature Granulocytes Absolute 0.91 #; Lymphocytes # 1.4 10*3/uL (1.4-4.0); Lymphocytes % 5.3 % (21.2-54.2); Mean Corpuscular HGB Conc 33.5 GM/DL (32-36); Mean Corpuscular Volume 85.1 FL (87-102); Mean Platelet Volume 11.3 FL (9.6-12.0); Monocytes # 2.5 10*3/uL (0.11-0.8); Monocytes % 9.4 % (1.7-12.7); Neutrophils % 81.5 % (38.7-73.9); Platelet Count 218 T/CUMM (130-400); Red Blood Count 4.42 MC/CUMM (3.8-5.5); Red Cell Distribution Width 14.2 % (9.3-17.3); White Blood Count 26.9 T/CUMM (4-12)
[2022-03-15 06:44] LABS: Albumin 2.4 G/DL (3.4-5.0); Bilirubin,Total 0.8 MG/DL (0.20-1.00); Calcium 8.4 MG/DL (8.5-10.1); Osmolality,Calculated 279.8 MOS/KG (273-304); Potassium 3.5 MMOL/L (3.5-5.1); Risk Ratio 6.76; Thyroid Stimulating Hormone 4.41 uIU/ml (0.358-3.74); Total Protein 7.1 G/DL (6.4-8.2); VLDL Cholesterol 43.2 MG/DL
[2022-03-15 08:37] LABS: Anisocytosis Slight; Band Neutrophils 21 % (0-10); Burr Cells 1+; Lymphocytes 4 % (20-55); Metamyelocytes 2 %; Platelet Estimate Normal; Total Cells Counted 100
[2022-03-15] MEDS: INSULIN LISPRO 100 UNIT/ML SUBCUT SCH ×4 (08:39→21:04)
[2022-03-15] MEDS: ENOXAPARIN 40 MG/0.4 ML SYRINGE SUBCUT SCH (10:01)
[2022-03-15] MEDS: PANTOPRAZOLE 40 MG TABLET PO SCH (10:02)
[2022-03-15] MEDS: TAMSULOSIN 0.4 MG CAPSULE PO SCH (10:03)
[2022-03-15] MEDS: CHOLECALCIFEROL 1,000 UNIT TABLET PO SCH (10:03)
[2022-03-15] MEDS: SIMVASTATIN 20 MG TABLET PO SCH (10:03)
[2022-03-15] MEDS: VANCOMYCIN INJ 1,500 MG in SODIUM CHLORIDE 0.9% 500 ML IV SCH (15:12)
[2022-03-15] MEDS: SODIUM CHLORIDE 0.9% 1,000 ML IV SCH (15:12)
[2022-03-15] MEDS: PIPERACILLIN/TAZOBACTAM 3,375 MG in SODIUM CHLORIDE 0.9% 100 ML IV SCH (19:06)
[2022-03-15] MEDS: GABAPENTIN 100 MG CAPSULE PO SCH (21:04)
[2022-03-15] MEDS: INSULIN NPH 100 UNIT/ML SUBCUT SCH (21:25)
[2022-03-16] MEDS: PIPERACILLIN/TAZOBACTAM 3,375 MG in SODIUM CHLORIDE 0.9% 100 ML IV SCH ×3 (01:31→18:14)
[2022-03-16 05:32] LABS: Basophils # 0.1 10*3/uL (0.0-0.2); Basophils % 0.3 % (0.0-0.8); Eosinophils % 0.2 % (0.00-10.9); Hematocrit 32.5 VOL% (42.0-52.0); Hemoglobin 11.2 GM/DL (14.0-18.0); Immature Granulocytes % 5.5 %; Immature Granulocytes Absolute 1.42 #; Lymphocytes # 1.2 10*3/uL (1.4-4.0); Lymphocytes % 4.7 % (21.2-54.2); Mean Corpuscular HGB Conc 34.5 GM/DL (32-36); Mean Corpuscular Volume 83.1 FL (87-102); Mean Platelet Volume 11.5 FL (9.6-12.0); Monocytes # 1.8 10*3/uL (0.11-0.8); Monocytes % 7.1 % (1.7-12.7); Neutrophils % 82.2 % (38.7-73.9); Platelet Count 206 T/CUMM (130-400); Red Blood Count 3.91 MC/CUMM (3.8-5.5); Red Cell Distribution Width 14.1 % (9.3-17.3); White Blood Count 25.7 T/CUMM (4-12)
[2022-03-16] MEDS: LEVOTHYROXINE 50 MCG TABLET PO SCH (05:53)
[2022-03-16 05:56] LABS: Lymphocytes 6 % (20-55); Platelet Estimate Normal; Total Cells Counted 100
[2022-03-16 05:59] LABS: Bilirubin,Total 1.3 MG/DL (0.20-1.00); Calcium 7.6 MG/DL (8.5-10.1); Osmolality,Calculated 271.7 MOS/KG (273-304); Total Protein 6.7 G/DL (6.4-8.2)
[2022-03-16] MEDS: INSULIN LISPRO 100 UNIT/ML SUBCUT SCH ×4 (09:23→22:41)
[2022-03-16] MEDS: TAMSULOSIN 0.4 MG CAPSULE PO SCH (09:24)
[2022-03-16] MEDS: PANTOPRAZOLE 40 MG TABLET PO SCH (09:24)
[2022-03-16] MEDS: SIMVASTATIN 20 MG TABLET PO SCH (09:24)
[2022-03-16] MEDS: CHOLECALCIFEROL 1,000 UNIT TABLET PO SCH (09:24)
[2022-03-16] MEDS: INSULIN NPH 100 UNIT/ML SUBCUT SCH ×2 (09:24→17:43)
[2022-03-16] MEDS: ENOXAPARIN 40 MG/0.4 ML SYRINGE SUBCUT SCH (09:25)
[2022-03-16] MEDS ORDERED: LIDOCAINE 2% 5 ML VIAL ONE ×2 (10:29→11:11)
[2022-03-16] MEDS ORDERED: DEXAMETHASONE 4 MG/1 ML VIAL ONE ×2 (10:29→11:10)
[2022-03-16] MEDS ORDERED: MIDAZOLAM 2 MG/2 ML VIAL ONE (10:29)
[2022-03-16] MEDS ORDERED: ONDANSETRON 4 MG/2 ML VIAL ONE ×2 (10:29→11:10)
[2022-03-16] MEDS ORDERED: SEVOFLURANE 1 UNIT/15 MINUTE INH ONE ×4 (10:29→12:16)
[2022-03-16] MEDS ORDERED: propofoL 200 MG/20 ML VIAL IV ONE (10:29)
[2022-03-16] MEDS ORDERED: fentaNYL 100 MCG/2 ML VIAL ONE (10:29)
[2022-03-16] MEDS ORDERED: ACETAMINOPHEN INJ 1,000 MG/100 ML VIAL IV ONE (10:30)
[2022-03-16] MEDS ORDERED: ROCURONIUM 50 MG/5 ML VIAL IV ONE (10:58)
[2022-03-16] MEDS ORDERED: SUCCINYLCHOLINE 200 MG/10 ML VIAL ONE (10:58)
[2022-03-16] MEDS ORDERED: PHENYLEPHRINE 1 MG/10 ML SYRINGE IV ONE (11:52)
[2022-03-16] MEDS ORDERED: ePHEDrine 50 MG/ML VIAL ONE (12:02)
[2022-03-16] MEDS ORDERED: SODIUM CHLORIDE 0.9% 1,000 ML IV ONE (12:16)
[2022-03-16] MEDS ORDERED: ZINC OXIDE PASTE 113 GM TUBE TOP PRN (14:06)
[2022-03-16] MEDS: VANCOMYCIN INJ 1,500 MG in SODIUM CHLORIDE 0.9% 500 ML IV SCH (15:15)
[2022-03-16] MEDS ORDERED: DEXTROSE 50% 25 GM/50 ML VIAL IV PRN (19:30)
[2022-03-16] MEDS: MORPHINE 2 MG/1 ML SYRINGE IV PRN (21:53)
[2022-03-16] MEDS: GABAPENTIN 100 MG CAPSULE PO SCH (21:53)
[2022-03-17] MEDS: PIPERACILLIN/TAZOBACTAM 3,375 MG in SODIUM CHLORIDE 0.9% 100 ML IV SCH ×3 (02:32→18:32)
[2022-03-17] MEDS: LEVOTHYROXINE 50 MCG TABLET PO SCH (05:39)
[2022-03-17 05:51] LABS: Basophils # 0.1 10*3/uL (0.0-0.2); Basophils % 0.2 % (0.0-0.8); Eosinophils % 0.1 % (0.00-10.9); Hematocrit 30.9 VOL% (42.0-52.0); Hemoglobin 10.6 GM/DL (14.0-18.0); Immature Granulocytes % 4.4 %; Immature Granulocytes Absolute 1.16 #; Lymphocytes # 0.9 10*3/uL (1.4-4.0); Lymphocytes % 3.5 % (21.2-54.2); Mean Corpuscular HGB Conc 34.3 GM/DL (32-36); Mean Corpuscular Volume 84.2 FL (87-102); Mean Platelet Volume 11.6 FL (9.6-12.0); Monocytes # 1.7 10*3/uL (0.11-0.8); Monocytes % 6.5 % (1.7-12.7); Neutrophils % 85.3 % (38.7-73.9); Platelet Count 236 T/CUMM (130-400); Red Blood Count 3.67 MC/CUMM (3.8-5.5); Red Cell Distribution Width 14.7 % (9.3-17.3); White Blood Count 26.2 T/CUMM (4-12)
[2022-03-17 06:16] LABS: Lymphocytes 3 % (20-55); Platelet Estimate Adequate; Total Cells Counted 100
[2022-03-17 06:17] LABS: Hypochromia Slight; Microcytosis Slight
[2022-03-17 06:33] LABS: Albumin 1.7 G/DL (3.4-5.0); Bilirubin,Total 1.7 MG/DL (0.20-1.00); Calcium 7.6 MG/DL (8.5-10.1); Osmolality,Calculated 271.7 MOS/KG (273-304); Potassium 3.2 MMOL/L (3.5-5.1); Total Protein 6.4 G/DL (6.4-8.2)
[2022-03-17] MEDS: INSULIN NPH 100 UNIT/ML SUBCUT SCH (08:44)
[2022-03-17] MEDS: INSULIN LISPRO 100 UNIT/ML SUBCUT SCH ×4 (08:45→22:24)
[2022-03-17] MEDS: PANTOPRAZOLE 40 MG TABLET PO SCH (09:00)
[2022-03-17] MEDS: CHOLECALCIFEROL 1,000 UNIT TABLET PO SCH (09:00)
[2022-03-17] MEDS: ENOXAPARIN 40 MG/0.4 ML SYRINGE SUBCUT SCH (09:00)
[2022-03-17] MEDS: SIMVASTATIN 20 MG TABLET PO SCH (09:00)
[2022-03-17] MEDS: TAMSULOSIN 0.4 MG CAPSULE PO SCH (09:00)
[2022-03-17] MEDS ORDERED: fentaNYL 100 MCG/2 ML VIAL ONE (12:05)
[2022-03-17] MEDS ORDERED: ETOMIDATE 40 MG/20 ML VIAL IV ONE (12:05)
[2022-03-17] MEDS ORDERED: propofoL 200 MG/20 ML VIAL IV ONE (12:05)
[2022-03-17] MEDS ORDERED: ONDANSETRON 4 MG/2 ML VIAL ONE (12:05)
[2022-03-17] MEDS: SODIUM CHLORIDE 0.9% 1,000 ML IV SCH (12:08)
[2022-03-17] MEDS ORDERED: PHENYLEPHRINE 1 MG/10 ML SYRINGE IV ONE (12:58)
[2022-03-17] MEDS ORDERED: SEVOFLURANE 1 UNIT/15 MINUTE INH ONE (12:58)
[2022-03-17] MEDS: VANCOMYCIN INJ 1,500 MG in SODIUM CHLORIDE 0.9% 500 ML IV SCH (15:06)
[2022-03-17] MEDS: GABAPENTIN 100 MG CAPSULE PO SCH (22:13)
[2022-03-18] MEDS: SODIUM CHLORIDE 0.9% 1,000 ML IV SCH ×3 (01:27→17:40)
[2022-03-18] MEDS: PIPERACILLIN/TAZOBACTAM 3,375 MG in SODIUM CHLORIDE 0.9% 100 ML IV SCH (01:30)
[2022-03-18 05:50] LABS: Basophils # 0.1 10*3/uL (0.0-0.2); Basophils % 0.3 % (0.0-0.8); Eosinophils % 0.1 % (0.00-10.9); Hematocrit 28.8 VOL% (42.0-52.0); Hemoglobin 10.1 GM/DL (14.0-18.0); Immature Granulocytes % 6.3 %; Immature Granulocytes Absolute 1.94 #; Lymphocytes % 3.4 % (21.2-54.2); Mean Corpuscular HGB Conc 35.1 GM/DL (32-36); Mean Corpuscular Volume 83.5 FL (87-102); Monocytes # 1.9 10*3/uL (0.11-0.8); Neutrophils % 83.9 % (38.7-73.9); Platelet Count 272 T/CUMM (130-400); Red Blood Count 3.45 MC/CUMM (3.8-5.5); Red Cell Distribution Width 14.8 % (9.3-17.3); White Blood Count 30.6 T/CUMM (4-12)
[2022-03-18 06:13] LABS: Hypochromia Slight; Lymphocytes 6 % (20-55); Microcytosis Slight; Platelet Estimate Adequate; Total Cells Counted 100
[2022-03-18] MEDS: LEVOTHYROXINE 50 MCG TABLET PO SCH (06:20)
[2022-03-18 06:27] LABS: Albumin 1.7 G/DL (3.4-5.0); Bilirubin,Total 2.6 MG/DL (0.20-1.00); Calcium 7.6 MG/DL (8.5-10.1); Osmolality,Calculated 267.2 MOS/KG (273-304); Potassium 3.1 MMOL/L (3.5-5.1)
[2022-03-18] MEDS: INSULIN LISPRO 100 UNIT/ML SUBCUT SCH ×4 (09:12→20:35)
[2022-03-18] MEDS ORDERED: SODIUM CHLORIDE 0.9% 1,000 ML IV ONE (09:31)
[2022-03-18] MEDS: PANTOPRAZOLE 40 MG TABLET PO SCH (09:51)
[2022-03-18] MEDS: SIMVASTATIN 20 MG TABLET PO SCH (09:51)
[2022-03-18] MEDS: CHOLECALCIFEROL 1,000 UNIT TABLET PO SCH (09:51)
[2022-03-18] MEDS: TAMSULOSIN 0.4 MG CAPSULE PO SCH (09:51)
[2022-03-18] MEDS: MEROPENEM 500 MG in SODIUM CHLORIDE 0.9% 100 ML IV SCH ×3 (09:52→20:35)
[2022-03-18] MEDS ORDERED: DEXTROSE 50% 25 GM/50 ML VIAL IV PRN (11:16)
[2022-03-18 12:32] LABS: Calcium 6.8 MG/DL (8.5-10.1); Osmolality,Calculated 271.9 MOS/KG (273-304); Potassium 3.2 MMOL/L (3.5-5.1)
[2022-03-18] MEDS: ENOXAPARIN 40 MG/0.4 ML SYRINGE SUBCUT SCH (13:00)
[2022-03-18] MEDS: INSULIN GLARGINE 100 UNIT/ML SUBCUT SCH (13:00)
[2022-03-18] MEDS: SODIUM HYPOCHLORITE 0.25% IRRIG 473 ML BOTTLE TOP SCH (15:12)
[2022-03-18] MEDS: VANCOMYCIN INJ 1,500 MG in SODIUM CHLORIDE 0.9% 500 ML IV SCH (15:25)
[2022-03-18] MEDS: GABAPENTIN 100 MG CAPSULE PO SCH (20:36)
[2022-03-18] MEDS: ONDANSETRON 4 MG/2 ML VIAL IV PRN (20:43)
[2022-03-18] MEDS: MORPHINE 2 MG/1 ML SYRINGE IV PRN (20:43)
[2022-03-19] MEDS: SODIUM CHLORIDE 0.9% 1,000 ML IV SCH ×6 (02:00→23:55)
[2022-03-19] MEDS: MEROPENEM 500 MG in SODIUM CHLORIDE 0.9% 100 ML IV SCH ×4 (04:28→20:09)
[2022-03-19] MEDS: LEVOTHYROXINE 50 MCG TABLET PO SCH (05:53)
[2022-03-19 06:09] LABS: Basophils # 0.1 10*3/uL (0.0-0.2); Basophils % 0.3 % (0.0-0.8); Eosinophils # 0.2 10*3/uL (0.0-0.87); Eosinophils % 0.6 % (0.00-10.9); Hemoglobin 10.1 GM/DL (14.0-18.0); Immature Granulocytes % 4.8 %; Immature Granulocytes Absolute 1.48 #; Lymphocytes # 1.2 10*3/uL (1.4-4.0); Lymphocytes % 3.9 % (21.2-54.2); Mean Corpuscular HGB Conc 34.8 GM/DL (32-36); Mean Corpuscular Volume 82.6 FL (87-102); Mean Platelet Volume 10.5 FL (9.6-12.0); Monocytes % 6.5 % (1.7-12.7); Neutrophils % 83.9 % (38.7-73.9); Platelet Count 371 T/CUMM (130-400); Red Blood Count 3.51 MC/CUMM (3.8-5.5); Red Cell Distribution Width 15.1 % (9.3-17.3); White Blood Count 30.8 T/CUMM (4-12)
[2022-03-19 06:22] LABS: Albumin 1.7 G/DL (3.4-5.0); Bilirubin,Total 2.8 MG/DL (0.20-1.00); Calcium 7.5 MG/DL (8.5-10.1); Osmolality,Calculated 266.9 MOS/KG (273-304); Total Protein 6.2 G/DL (6.4-8.2)
[2022-03-19 06:45] LABS: Band Neutrophils 1 % (0-10); Lymphocytes 1 % (20-55); Microcytosis 1+; Total Cells Counted 100
[2022-03-19 06:46] LABS: Hypochromia Slight; Ovalocytes Slight; Platelet Estimate Normal; Polychromasia Slight
[2022-03-19 06:47] LABS: Target Cells Slight
[2022-03-19] MEDS: INSULIN LISPRO 100 UNIT/ML SUBCUT SCH ×4 (09:16→20:10)
[2022-03-19] MEDS: INSULIN GLARGINE 100 UNIT/ML SUBCUT SCH (09:16)
[2022-03-19] MEDS: TAMSULOSIN 0.4 MG CAPSULE PO SCH (09:20)
[2022-03-19] MEDS: SIMVASTATIN 20 MG TABLET PO SCH (09:20)
[2022-03-19] MEDS: CHOLECALCIFEROL 1,000 UNIT TABLET PO SCH (09:20)
[2022-03-19] MEDS: PANTOPRAZOLE 40 MG TABLET PO SCH (09:20)
[2022-03-19] MEDS: ENOXAPARIN 40 MG/0.4 ML SYRINGE SUBCUT SCH (09:23)
[2022-03-19] MEDS: SODIUM HYPOCHLORITE 0.25% IRRIG 473 ML BOTTLE TOP SCH (09:24)
[2022-03-19] MEDS: POTASSIUM CHLORIDE RIDER 10 MEQ/100 ML PREMIX IV PRN ×5 (10:23→15:00)
[2022-03-19] MEDS: MORPHINE 2 MG/1 ML SYRINGE IV PRN (20:09)
[2022-03-19] MEDS: GABAPENTIN 100 MG CAPSULE PO SCH (20:11)
[2022-03-20] MEDS: MORPHINE 2 MG/1 ML SYRINGE IV PRN ×2 (01:46→21:27)
[2022-03-20] MEDS: SODIUM CHLORIDE 0.9% 1,000 ML IV SCH (01:48)
[2022-03-20] MEDS: MEROPENEM 500 MG in SODIUM CHLORIDE 0.9% 100 ML IV SCH ×4 (02:00→21:24)
[2022-03-20] MEDS: LEVOTHYROXINE 50 MCG TABLET PO SCH (05:02)
[2022-03-20 05:14] LABS: Basophils # 0.1 10*3/uL (0.0-0.2); Basophils % 0.2 % (0.0-0.8); Eosinophils # 0.3 10*3/uL (0.0-0.87); Eosinophils % 0.9 % (0.00-10.9); Hematocrit 27.5 VOL% (42.0-52.0); Hemoglobin 9.6 GM/DL (14.0-18.0); Immature Granulocytes % 6.2 %; Lymphocytes # 1.3 10*3/uL (1.4-4.0); Lymphocytes % 4.8 % (21.2-54.2); Mean Corpuscular HGB Conc 34.9 GM/DL (32-36); Mean Corpuscular Volume 81.8 FL (87-102); Monocytes % 7.3 % (1.7-12.7); Neutrophils % 80.6 % (38.7-73.9); Platelet Count 413 T/CUMM (130-400); Red Blood Count 3.36 MC/CUMM (3.8-5.5); Red Cell Distribution Width 14.9 % (9.3-17.3); White Blood Count 27.4 T/CUMM (4-12)
[2022-03-20 05:32] LABS: Calcium 7.1 MG/DL (8.5-10.1); Osmolality,Calculated 270.2 MOS/KG (273-304)
[2022-03-20 05:40] LABS: Band Neutrophils 1 % (0-10); Eosinophils 1 % (0-10); Hypochromia Slight; Lymphocytes 5 % (20-55); Microcytosis Slight; Platelet Estimate Adequate; Target Cells Slight; Total Cells Counted 100
[2022-03-20] MEDS ORDERED: FAMOTIDINE 20 MG TABLET PO ONE (06:00)
[2022-03-20] MEDS: POTASSIUM CHLORIDE RIDER 10 MEQ/100 ML PREMIX IV PRN ×2 (06:00→08:19)
[2022-03-20] MEDS ORDERED: MAGNESIUM SULF RIDER 2 GM/50 ML PREMIX IV ONE (09:00)
[2022-03-20] MEDS: TAMSULOSIN 0.4 MG CAPSULE PO SCH (09:24)
[2022-03-20] MEDS: POTASSIUM CHLORIDE 20 MEQ TABLET PO PRN ×2 (09:24→16:54)
[2022-03-20] MEDS: SIMVASTATIN 20 MG TABLET PO SCH (09:24)
[2022-03-20] MEDS: CHOLECALCIFEROL 1,000 UNIT TABLET PO SCH (09:24)
[2022-03-20] MEDS: PANTOPRAZOLE 40 MG TABLET PO SCH (09:24)
[2022-03-20] MEDS ORDERED: MIDAZOLAM 2 MG/2 ML VIAL ONE (10:46)
[2022-03-20] MEDS ORDERED: propofoL 200 MG/20 ML VIAL IV ONE (10:46)
[2022-03-20] MEDS ORDERED: fentaNYL 100 MCG/2 ML VIAL ONE (10:46)
[2022-03-20] MEDS ORDERED: LIDOCAINE 2% 5 ML VIAL ONE (10:46)
[2022-03-20] MEDS ORDERED: ONDANSETRON 4 MG/2 ML VIAL ONE ×2 (10:46→12:57)
[2022-03-20] MEDS ORDERED: LIDOCAINE 1%/EPI INJ 20 ML VIAL ONE (11:30)
[2022-03-20] MEDS ORDERED: BUPIVACAINE MPF 0.25% 10 ML VIAL ONE (11:30)
[2022-03-20] MEDS ORDERED: PHENYLEPHRINE 1 MG/10 ML SYRINGE IV ONE (12:57)
[2022-03-20] MEDS ORDERED: VANCOMYCIN INJ 1,000 MG in SODIUM CHLORIDE 0.9% 250 ML IV SCH (13:30)
[2022-03-20] MEDS ORDERED: DEXTROSE 50% 25 GM/50 ML VIAL IV PRN (14:36)
[2022-03-20] MEDS ORDERED: GLUCAGON 1 MG VIAL IM PRN (14:36)
[2022-03-20] MEDS: INSULIN LISPRO 100 UNIT/ML SUBCUT SCH ×3 (15:37→21:24)
[2022-03-20] MEDS: SODIUM HYPOCHLORITE 0.25% IRRIG 473 ML BOTTLE TOP SCH (15:38)
[2022-03-20] MEDS: INSULIN GLARGINE 100 UNIT/ML SUBCUT SCH (15:38)
[2022-03-20] MEDS: VANCOMYCIN INJ 1,500 MG in SODIUM CHLORIDE 0.9% 500 ML IV SCH (16:50)
[2022-03-20] MEDS: GABAPENTIN 100 MG CAPSULE PO SCH (21:24)
[2022-03-21] MEDS: SODIUM CHLORIDE 0.9% 1,000 ML IV SCH ×3 (00:48→22:55)
[2022-03-21] MEDS: MEROPENEM 500 MG in SODIUM CHLORIDE 0.9% 100 ML IV SCH ×4 (03:35→20:55)
[2022-03-21 05:21] LABS: Basophils # 0.1 10*3/uL (0.0-0.2); Basophils % 0.3 % (0.0-0.8); Eosinophils # 0.3 10*3/uL (0.0-0.87); Eosinophils % 1.2 % (0.00-10.9); Hematocrit 27.3 VOL% (42.0-52.0); Hemoglobin 9.3 GM/DL (14.0-18.0); Immature Granulocytes % 7.5 %; Immature Granulocytes Absolute 1.76 #; Lymphocytes # 1.3 10*3/uL (1.4-4.0); Lymphocytes % 5.7 % (21.2-54.2); Mean Corpuscular HGB Conc 34.1 GM/DL (32-36); Mean Corpuscular Volume 82.7 FL (87-102); Monocytes # 1.9 10*3/uL (0.11-0.8); Monocytes % 8.1 % (1.7-12.7); NRBC # 0.02 10*3/uL; Neutrophils % 77.2 % (38.7-73.9); Platelet Count 478 T/CUMM (130-400); Red Cell Distribution Width 15.4 % (9.3-17.3); White Blood Count 23.3 T/CUMM (4-12)
[2022-03-21 05:42] LABS: Albumin 1.6 G/DL (3.4-5.0); Bilirubin,Total 1.3 MG/DL (0.20-1.00); Calcium 7.2 MG/DL (8.5-10.1); Osmolality,Calculated 270.5 MOS/KG (273-304); Potassium 3.3 MMOL/L (3.5-5.1)
[2022-03-21] MEDS: LEVOTHYROXINE 50 MCG TABLET PO SCH (06:07)
[2022-03-21 07:06] LABS: Band Neutrophils 1 % (0-10); Eosinophils 2 % (0-10); Lymphocytes 4 % (20-55); Total Cells Counted 100
[2022-03-21 07:07] LABS: Hypochromia Slight; Microcytosis Slight; Polychromasia Slight; Target Cells Slight
[2022-03-21 07:08] LABS: Platelet Estimate Increased
[2022-03-21] MEDS ORDERED: INSULIN GLARGINE 100 UNIT/ML SUBCUT SCH (09:00)
[2022-03-21] MEDS: SODIUM HYPOCHLORITE 0.25% IRRIG 473 ML BOTTLE TOP SCH (10:28)
[2022-03-21] MEDS: METOPROLOL SUCCINATE XL 50 MG TABLET PO SCH (10:32)
[2022-03-21] MEDS: CHOLECALCIFEROL 1,000 UNIT TABLET PO SCH (10:32)
[2022-03-21] MEDS: PANTOPRAZOLE 40 MG TABLET PO SCH (10:32)
[2022-03-21] MEDS: POTASSIUM CHLORIDE 20 MEQ TABLET PO PRN ×3 (10:32→17:11)
[2022-03-21] MEDS: TAMSULOSIN 0.4 MG CAPSULE PO SCH (10:32)
[2022-03-21] MEDS: SIMVASTATIN 20 MG TABLET PO SCH (10:32)
[2022-03-21] MEDS: INSULIN LISPRO 100 UNIT/ML SUBCUT SCH ×4 (10:35→20:55)
[2022-03-21] MEDS: VANCOMYCIN INJ 1,500 MG in SODIUM CHLORIDE 0.9% 500 ML IV SCH ×2 (16:32→17:48)
[2022-03-21] MEDS: amLODIPine 10 MG TABLET PO SCH (20:54)
[2022-03-21] MEDS: GABAPENTIN 100 MG CAPSULE PO SCH (20:54)
[2022-03-22] MEDS: MEROPENEM 500 MG in SODIUM CHLORIDE 0.9% 100 ML IV SCH ×4 (03:12→20:32)
[2022-03-22] MEDS: SODIUM CHLORIDE 0.9% 1,000 ML IV SCH ×3 (03:12→13:32)
[2022-03-22] MEDS: VANCOMYCIN INJ 1,500 MG in SODIUM CHLORIDE 0.9% 500 ML IV SCH ×2 (04:51→16:42)
[2022-03-22 05:50] LABS: Basophils # 0.1 10*3/uL (0.0-0.2); Basophils % 0.3 % (0.0-0.8); Eosinophils # 0.2 10*3/uL (0.0-0.87); Eosinophils % 0.7 % (0.00-10.9); Hematocrit 26.8 VOL% (42.0-52.0); Hemoglobin 9.1 GM/DL (14.0-18.0); Immature Granulocytes % 7.5 %; Immature Granulocytes Absolute 1.69 #; Lymphocytes # 1.3 10*3/uL (1.4-4.0); Lymphocytes % 5.5 % (21.2-54.2); Mean Platelet Volume 9.5 FL (9.6-12.0); Monocytes # 1.5 10*3/uL (0.11-0.8); Monocytes % 6.7 % (1.7-12.7); Neutrophils % 79.3 % (38.7-73.9); Platelet Count 488 T/CUMM (130-400); Red Blood Count 3.23 MC/CUMM (3.8-5.5); Red Cell Distribution Width 15.4 % (9.3-17.3); White Blood Count 22.6 T/CUMM (4-12)
[2022-03-22] MEDS: LEVOTHYROXINE 50 MCG TABLET PO SCH (06:07)
[2022-03-22 06:10] LABS: Calcium 6.9 MG/DL (8.5-10.1); Osmolality,Calculated 269.4 MOS/KG (273-304); Potassium 3.5 MMOL/L (3.5-5.1)
[2022-03-22 06:13] LABS: Band Neutrophils 4 % (0-10); Eosinophils 2 % (0-10); Hypochromia Slight; Lymphocytes 3 % (20-55); Total Cells Counted 100
[2022-03-22 06:14] LABS: Microcytosis Slight; Platelet Estimate Increased; Polychromasia Slight; Target Cells Slight
[2022-03-22] MEDS: SODIUM HYPOCHLORITE 0.25% IRRIG 473 ML BOTTLE TOP SCH (07:40)
[2022-03-22] MEDS ORDERED: MAGNESIUM SULF RIDER 4 GM/100 ML PREMIX IV ONE (08:20)
[2022-03-22] MEDS: SIMVASTATIN 20 MG TABLET PO SCH (09:55)
[2022-03-22] MEDS: METOPROLOL SUCCINATE XL 50 MG TABLET PO SCH (09:55)
[2022-03-22] MEDS: CHOLECALCIFEROL 1,000 UNIT TABLET PO SCH (09:55)
[2022-03-22] MEDS: TAMSULOSIN 0.4 MG CAPSULE PO SCH (09:55)
[2022-03-22] MEDS: PANTOPRAZOLE 40 MG TABLET PO SCH (09:55)
[2022-03-22] MEDS: INSULIN GLARGINE 100 UNIT/ML SUBCUT SCH (09:56)
[2022-03-22] MEDS: INSULIN LISPRO 100 UNIT/ML SUBCUT SCH ×4 (10:18→20:32)
[2022-03-22] MEDS: amLODIPine 10 MG TABLET PO SCH (20:32)
[2022-03-22] MEDS: GABAPENTIN 100 MG CAPSULE PO SCH (20:32)
[2022-03-22] MEDS ORDERED: MORPHINE 2 MG/1 ML SYRINGE IV PRN (20:46)
[2022-03-22] MEDS: ZALEPLON 5 MG CAPSULE PO PRN (22:24)
[2022-03-23] MEDS: MEROPENEM 500 MG in SODIUM CHLORIDE 0.9% 100 ML IV SCH (03:20)
[2022-03-23] MEDS: VANCOMYCIN INJ 1,500 MG in SODIUM CHLORIDE 0.9% 500 ML IV SCH (04:20)
[2022-03-23 05:43] LABS: Basophils % 0.2 % (0.0-0.8); Eosinophils # 0.1 10*3/uL (0.0-0.87); Eosinophils % 0.7 % (0.00-10.9); Hematocrit 25.6 VOL% (42.0-52.0); Hemoglobin 8.7 GM/DL (14.0-18.0); Immature Granulocytes % 6.4 %; Immature Granulocytes Absolute 1.19 #; Lymphocytes # 1.3 10*3/uL (1.4-4.0); Mean Corpuscular Volume 83.9 FL (87-102); Mean Platelet Volume 9.7 FL (9.6-12.0); Monocytes # 1.4 10*3/uL (0.11-0.8); Monocytes % 7.7 % (1.7-12.7); Platelet Count 499 T/CUMM (130-400); Red Blood Count 3.05 MC/CUMM (3.8-5.5); Red Cell Distribution Width 15.6 % (9.3-17.3); White Blood Count 18.7 T/CUMM (4-12)
[2022-03-23] MEDS: LEVOTHYROXINE 50 MCG TABLET PO SCH (05:59)
[2022-03-23 06:00] LABS: Albumin 1.4 G/DL (3.4-5.0); Bilirubin,Total 0.8 MG/DL (0.20-1.00); Calcium 6.9 MG/DL (8.5-10.1); Osmolality,Calculated 273.2 MOS/KG (273-304); Potassium 3.3 MMOL/L (3.5-5.1); Total Protein 6.3 G/DL (6.4-8.2)
[2022-03-23 06:07] LABS: Eosinophils 1 % (0-10); Hypochromia Slight; Lymphocytes 5 % (20-55); Total Cells Counted 100
[2022-03-23 06:08] LABS: Microcytosis Slight; Ovalocytes Slight; Target Cells Slight
[2022-03-23] MEDS ORDERED: POTASSIUM CHLORIDE 20 MEQ TABLET PO ONE (07:59)
[2022-03-23] MEDS: INSULIN LISPRO 100 UNIT/ML SUBCUT SCH ×4 (10:03→20:34)
[2022-03-23] MEDS: ONDANSETRON 4 MG/2 ML VIAL IV PRN (10:06)
[2022-03-23] MEDS: TAMSULOSIN 0.4 MG CAPSULE PO SCH (10:15)
[2022-03-23] MEDS: PANTOPRAZOLE 40 MG TABLET PO SCH (10:16)
[2022-03-23] MEDS: SIMVASTATIN 20 MG TABLET PO SCH (10:16)
[2022-03-23] MEDS: METOPROLOL SUCCINATE XL 50 MG TABLET PO SCH (10:16)
[2022-03-23] MEDS: CHOLECALCIFEROL 1,000 UNIT TABLET PO SCH (10:17)
[2022-03-23] MEDS: INSULIN GLARGINE 100 UNIT/ML SUBCUT SCH (10:17)
[2022-03-23] MEDS: cefTRIAXone 2,000 MG in SODIUM CHLORIDE 0.9% 100 ML IV SCH (10:22)
[2022-03-23] MEDS: SODIUM HYPOCHLORITE 0.25% IRRIG 473 ML BOTTLE TOP SCH (10:32)
[2022-03-23] MEDS: SODIUM CHLORIDE 0.9% 1,000 ML IV SCH ×3 (12:23→22:55)
[2022-03-23] MEDS: GABAPENTIN 100 MG CAPSULE PO SCH (20:33)
[2022-03-23] MEDS: ZALEPLON 5 MG CAPSULE PO PRN (20:33)
[2022-03-23] MEDS: amLODIPine 10 MG TABLET PO SCH (20:34)
[2022-03-24 05:14] LABS: Basophils % 0.3 % (0.0-0.8); Eosinophils # 0.3 10*3/uL (0.0-0.87); Eosinophils % 1.9 % (0.00-10.9); Hematocrit 26.2 VOL% (42.0-52.0); Hemoglobin 8.7 GM/DL (14.0-18.0); Immature Granulocytes % 4.7 %; Immature Granulocytes Absolute 0.66 #; Lymphocytes # 1.3 10*3/uL (1.4-4.0); Lymphocytes % 9.2 % (21.2-54.2); Mean Corpuscular HGB Conc 33.2 GM/DL (32-36); Mean Corpuscular Volume 85.6 FL (87-102); Mean Platelet Volume 9.4 FL (9.6-12.0); Monocytes # 1.1 10*3/uL (0.11-0.8); Monocytes % 7.8 % (1.7-12.7); Neutrophils % 76.1 % (38.7-73.9); Platelet Count 489 T/CUMM (130-400); Red Blood Count 3.06 MC/CUMM (3.8-5.5)
[2022-03-24] MEDS: LEVOTHYROXINE 50 MCG TABLET PO SCH (05:17)
[2022-03-24 05:35] LABS: Band Neutrophils 1 % (0-10); Eosinophils 1 % (0-10); Hypochromia 1+; Lymphocytes 7 % (20-55); Microcytosis 1+; Platelet Estimate Adequate; Total Cells Counted 100
[2022-03-24 05:45] LABS: Albumin 1.3 G/DL (3.4-5.0); Bilirubin,Total 0.6 MG/DL (0.20-1.00); Calcium 6.9 MG/DL (8.5-10.1); Potassium 3.8 MMOL/L (3.5-5.1); Total Protein 6.6 G/DL (6.4-8.2)
[2022-03-24] MEDS: SODIUM CHLORIDE 0.9% 1,000 ML IV SCH ×4 (07:37→16:08)
[2022-03-24] MEDS: cefTRIAXone 2,000 MG in SODIUM CHLORIDE 0.9% 100 ML IV SCH (08:11)
[2022-03-24] MEDS: INSULIN LISPRO 100 UNIT/ML SUBCUT SCH ×4 (08:12→21:26)
[2022-03-24] MEDS: SIMVASTATIN 20 MG TABLET PO SCH (08:12)
[2022-03-24] MEDS: CHOLECALCIFEROL 1,000 UNIT TABLET PO SCH (08:12)
[2022-03-24] MEDS: PANTOPRAZOLE 40 MG TABLET PO SCH (08:12)
[2022-03-24] MEDS: METOPROLOL SUCCINATE XL 50 MG TABLET PO SCH (08:12)
[2022-03-24] MEDS: TAMSULOSIN 0.4 MG CAPSULE PO SCH (08:12)
[2022-03-24] MEDS: SODIUM HYPOCHLORITE 0.25% IRRIG 473 ML BOTTLE TOP SCH (08:13)
[2022-03-24] MEDS: INSULIN GLARGINE 100 UNIT/ML SUBCUT SCH (08:55)
[2022-03-24] MEDS ORDERED: POLYETHYLENE GLYCOL POWDER 17 GM PACK PO ONE (09:17)
[2022-03-24] MEDS: DOCUSATE SODIUM 100 MG CAPSULE PO SCH ×2 (10:30→21:28)
[2022-03-24] MEDS: ONDANSETRON 4 MG/2 ML VIAL IV PRN (10:35)
[2022-03-24] MEDS: GABAPENTIN 100 MG CAPSULE PO SCH (21:26)
[2022-03-24] MEDS: amLODIPine 10 MG TABLET PO SCH (22:33)
[2022-03-25 05:30] LABS: Basophils % 0.2 % (0.0-0.8); Eosinophils # 0.1 10*3/uL (0.0-0.87); Eosinophils % 0.8 % (0.00-10.9); Hemoglobin 8.9 GM/DL (14.0-18.0); Immature Granulocytes % 2.5 %; Immature Granulocytes Absolute 0.32 #; Lymphocytes # 1.2 10*3/uL (1.4-4.0); Lymphocytes % 9.7 % (21.2-54.2); Mean Corpuscular Volume 85.7 FL (87-102); Mean Platelet Volume 9.2 FL (9.6-12.0); Neutrophils % 78.8 % (38.7-73.9); Platelet Count 495 T/CUMM (130-400); Red Blood Count 3.15 MC/CUMM (3.8-5.5); Red Cell Distribution Width 15.8 % (9.3-17.3); White Blood Count 12.6 T/CUMM (4-12)
[2022-03-25] MEDS: LEVOTHYROXINE 50 MCG TABLET PO SCH (06:04)
[2022-03-25 06:31] LABS: Albumin 1.4 G/DL (3.4-5.0); Bilirubin,Total 0.7 MG/DL (0.20-1.00); Calcium 6.8 MG/DL (8.5-10.1); Osmolality,Calculated 269.1 MOS/KG (273-304)
[2022-03-25] MEDS: CHOLECALCIFEROL 1,000 UNIT TABLET PO SCH (10:27)
[2022-03-25] MEDS: SIMVASTATIN 20 MG TABLET PO SCH (10:27)
[2022-03-25] MEDS: TAMSULOSIN 0.4 MG CAPSULE PO SCH (10:27)
[2022-03-25] MEDS: PANTOPRAZOLE 40 MG TABLET PO SCH (10:27)
[2022-03-25] MEDS: INSULIN LISPRO 100 UNIT/ML SUBCUT SCH ×4 (10:27→21:31)
[2022-03-25] MEDS: METOPROLOL SUCCINATE XL 50 MG TABLET PO SCH (10:27)
[2022-03-25] MEDS: DOCUSATE SODIUM 100 MG CAPSULE PO SCH ×2 (10:27→21:30)
[2022-03-25] MEDS: cefTRIAXone 2,000 MG in SODIUM CHLORIDE 0.9% 100 ML IV SCH (10:28)
[2022-03-25] MEDS: SODIUM HYPOCHLORITE 0.25% IRRIG 473 ML BOTTLE TOP SCH (10:28)
[2022-03-25] MEDS: INSULIN GLARGINE 100 UNIT/ML SUBCUT SCH (10:28)
[2022-03-25] MEDS ORDERED: BISACODYL 5 MG TABLET PO ONE (12:00)
[2022-03-25] MEDS ORDERED: BISACODYL 10 MG SUPP RECTAL ONE (17:00)
[2022-03-25] MEDS: ONDANSETRON 4 MG/2 ML VIAL IV PRN (19:24)
[2022-03-25] MEDS: amLODIPine 10 MG TABLET PO SCH (21:30)
[2022-03-25] MEDS: ZALEPLON 5 MG CAPSULE PO PRN (21:30)
[2022-03-25] MEDS: GABAPENTIN 100 MG CAPSULE PO SCH (21:30)
[2022-03-26 05:09] LABS: Basophils % 0.2 % (0.0-0.8); Eosinophils % 0.3 % (0.00-10.9); Hematocrit 25.9 VOL% (42.0-52.0); Hemoglobin 8.5 GM/DL (14.0-18.0); Immature Granulocytes % 1.6 %; Immature Granulocytes Absolute 0.19 #; Lymphocytes # 1.3 10*3/uL (1.4-4.0); Lymphocytes % 10.5 % (21.2-54.2); Mean Corpuscular HGB Conc 32.8 GM/DL (32-36); Mean Corpuscular Volume 85.5 FL (87-102); Mean Platelet Volume 9.2 FL (9.6-12.0); Neutrophils % 79.4 % (38.7-73.9); Platelet Count 516 T/CUMM (130-400); Red Blood Count 3.03 MC/CUMM (3.8-5.5); Red Cell Distribution Width 15.3 % (9.3-17.3); White Blood Count 12.2 T/CUMM (4-12)
[2022-03-26] MEDS: LEVOTHYROXINE 50 MCG TABLET PO SCH (05:43)
[2022-03-26 05:44] LABS: Albumin 1.4 G/DL (3.4-5.0); Bilirubin,Total 0.5 MG/DL (0.20-1.00); Calcium 7.1 MG/DL (8.5-10.1); Osmolality,Calculated 270.2 MOS/KG (273-304); Potassium 3.9 MMOL/L (3.5-5.1)
[2022-03-26] MEDS: SODIUM CHLORIDE 0.9% 1,000 ML IV SCH ×3 (05:53→16:39)
[2022-03-26 08:27] LABS: Folate 9.3 NG/ML (5.38-24.0)
[2022-03-26] MEDS: TAMSULOSIN 0.4 MG CAPSULE PO SCH (09:39)
[2022-03-26] MEDS: cefTRIAXone 2,000 MG in SODIUM CHLORIDE 0.9% 100 ML IV SCH (09:39)
[2022-03-26] MEDS: SIMVASTATIN 20 MG TABLET PO SCH (09:39)
[2022-03-26] MEDS: METOPROLOL SUCCINATE XL 50 MG TABLET PO SCH (09:39)
[2022-03-26] MEDS: PANTOPRAZOLE 40 MG TABLET PO SCH (09:39)
[2022-03-26] MEDS: CHOLECALCIFEROL 1,000 UNIT TABLET PO SCH (09:39)
[2022-03-26] MEDS: DOCUSATE SODIUM 100 MG CAPSULE PO SCH ×2 (09:39→21:16)
[2022-03-26] MEDS: INSULIN GLARGINE 100 UNIT/ML SUBCUT SCH (09:56)
[2022-03-26] MEDS: SODIUM HYPOCHLORITE 0.25% IRRIG 473 ML BOTTLE TOP SCH (09:56)
[2022-03-26] MEDS: INSULIN LISPRO 100 UNIT/ML SUBCUT SCH ×4 (09:56→21:15)
[2022-03-26] MEDS: GABAPENTIN 100 MG CAPSULE PO SCH (21:16)
[2022-03-26] MEDS: ZALEPLON 5 MG CAPSULE PO PRN (21:16)
[2022-03-26] MEDS: amLODIPine 10 MG TABLET PO SCH (21:17)
[2022-03-27] MEDS: SODIUM CHLORIDE 0.9% 1,000 ML IV SCH ×2 (02:30→15:16)
[2022-03-27] MEDS: LEVOTHYROXINE 50 MCG TABLET PO SCH (05:30)
[2022-03-27 05:51] LABS: Basophils % 0.4 % (0.0-0.8); Eosinophils % 0.1 % (0.00-10.9); Hematocrit 26.4 VOL% (42.0-52.0); Hemoglobin 8.7 GM/DL (14.0-18.0); Immature Granulocytes % 0.8 %; Immature Granulocytes Absolute 0.08 #; Lymphocytes # 1.3 10*3/uL (1.4-4.0); Lymphocytes % 12.4 % (21.2-54.2); Mean Platelet Volume 9.5 FL (9.6-12.0); Monocytes # 0.9 10*3/uL (0.11-0.8); Monocytes % 8.8 % (1.7-12.7); Neutrophils % 77.5 % (38.7-73.9); Platelet Count 500 T/CUMM (130-400); Red Blood Count 3.07 MC/CUMM (3.8-5.5); White Blood Count 10.2 T/CUMM (4-12)
[2022-03-27 06:16] LABS: Calcium 7.4 MG/DL (8.5-10.1); Osmolality,Calculated 270.1 MOS/KG (273-304); Potassium 3.7 MMOL/L (3.5-5.1)
[2022-03-27] MEDS: INSULIN LISPRO 100 UNIT/ML SUBCUT SCH ×4 (07:32→21:05)
[2022-03-27] MEDS ORDERED: MAGNESIUM SULF RIDER 2 GM/50 ML PREMIX IV ONE (07:52)
[2022-03-27] MEDS: cefTRIAXone 2,000 MG in SODIUM CHLORIDE 0.9% 100 ML IV SCH (08:43)
[2022-03-27] MEDS: SIMVASTATIN 20 MG TABLET PO SCH (08:44)
[2022-03-27] MEDS: TAMSULOSIN 0.4 MG CAPSULE PO SCH (08:44)
[2022-03-27] MEDS: METOPROLOL SUCCINATE XL 50 MG TABLET PO SCH (08:44)
[2022-03-27] MEDS: DOCUSATE SODIUM 100 MG CAPSULE PO SCH ×2 (08:44→21:06)
[2022-03-27] MEDS: CHOLECALCIFEROL 1,000 UNIT TABLET PO SCH (08:44)
[2022-03-27] MEDS: PANTOPRAZOLE 40 MG TABLET PO SCH (08:44)
[2022-03-27] MEDS: SODIUM HYPOCHLORITE 0.25% IRRIG 473 ML BOTTLE TOP SCH (10:46)
[2022-03-27] MEDS: INSULIN GLARGINE 100 UNIT/ML SUBCUT SCH (11:08)
[2022-03-27] MEDS: FERRIC GLUCONATE COMPLEX 125 MG in SODIUM CHLORIDE 0.9% 100 ML IV SCH (13:32)
[2022-03-27] MEDS: GABAPENTIN 100 MG CAPSULE PO SCH ×2 (16:29→21:06)
[2022-03-27] MEDS: ZALEPLON 5 MG CAPSULE PO PRN (21:05)
[2022-03-27] MEDS: amLODIPine 10 MG TABLET PO SCH (21:06)
[2022-03-28] MEDS: SODIUM CHLORIDE 0.9% 1,000 ML IV SCH (05:29)
[2022-03-28] MEDS: LEVOTHYROXINE 50 MCG TABLET PO SCH (05:30)
[2022-03-28 05:42] LABS: Basophils # 0.1 10*3/uL (0.0-0.2); Basophils % 0.5 % (0.0-0.8); Hematocrit 25.7 VOL% (42.0-52.0); Hemoglobin 8.5 GM/DL (14.0-18.0); Immature Granulocytes % 0.9 %; Immature Granulocytes Absolute 0.09 #; Lymphocytes # 1.3 10*3/uL (1.4-4.0); Lymphocytes % 13.3 % (21.2-54.2); Mean Corpuscular HGB Conc 33.1 GM/DL (32-36); Mean Platelet Volume 9.1 FL (9.6-12.0); Monocytes # 0.9 10*3/uL (0.11-0.8); Monocytes % 8.8 % (1.7-12.7); Neutrophils % 76.5 % (38.7-73.9); Platelet Count 480 T/CUMM (130-400); Red Blood Count 2.99 MC/CUMM (3.8-5.5); Red Cell Distribution Width 14.8 % (9.3-17.3); White Blood Count 9.7 T/CUMM (4-12)
[2022-03-28 06:11] LABS: Calcium 7.5 MG/DL (8.5-10.1); Osmolality,Calculated 267.2 MOS/KG (273-304); Potassium 4.1 MMOL/L (3.5-5.1)
[2022-03-28] MEDS: INSULIN LISPRO 100 UNIT/ML SUBCUT SCH ×3 (08:45→16:49)
[2022-03-28] MEDS: PANTOPRAZOLE 40 MG TABLET PO SCH (08:53)
[2022-03-28] MEDS: GABAPENTIN 100 MG CAPSULE PO SCH ×3 (08:53→20:54)
[2022-03-28] MEDS: DOCUSATE SODIUM 100 MG CAPSULE PO SCH ×2 (08:53→20:54)
[2022-03-28] MEDS: cefTRIAXone 2,000 MG in SODIUM CHLORIDE 0.9% 100 ML IV SCH (08:53)
[2022-03-28] MEDS: METOPROLOL SUCCINATE XL 50 MG TABLET PO SCH (08:53)
[2022-03-28] MEDS: TAMSULOSIN 0.4 MG CAPSULE PO SCH (08:53)
[2022-03-28] MEDS: CHOLECALCIFEROL 1,000 UNIT TABLET PO SCH (08:53)
[2022-03-28] MEDS: SIMVASTATIN 20 MG TABLET PO SCH (08:54)
[2022-03-28] MEDS: SODIUM HYPOCHLORITE 0.25% IRRIG 473 ML BOTTLE TOP SCH (08:58)
[2022-03-28] MEDS: INSULIN GLARGINE 100 UNIT/ML SUBCUT SCH (09:00)
[2022-03-28] MEDS: FERRIC GLUCONATE COMPLEX 125 MG in SODIUM CHLORIDE 0.9% 100 ML IV SCH (10:57)
[2022-03-28] MEDS: ZALEPLON 5 MG CAPSULE PO PRN (20:54)
[2022-03-28] MEDS: amLODIPine 10 MG TABLET PO SCH (20:54)
[2022-03-29] MEDS: SODIUM CHLORIDE 0.9% 1,000 ML IV SCH ×5 (00:18→21:55)
[2022-03-29] MEDS: INSULIN LISPRO 100 UNIT/ML SUBCUT SCH ×5 (00:21→20:51)
[2022-03-29] MEDS: LEVOTHYROXINE 50 MCG TABLET PO SCH (05:40)
[2022-03-29 05:55] LABS: Basophils # 0.1 10*3/uL (0.0-0.2); Basophils % 0.7 % (0.0-0.8); Eosinophils % 0.3 % (0.00-10.9); Hematocrit 25.2 VOL% (42.0-52.0); Hemoglobin 8.3 GM/DL (14.0-18.0); Immature Granulocytes % 0.7 %; Immature Granulocytes Absolute 0.06 #; Lymphocytes # 1.3 10*3/uL (1.4-4.0); Lymphocytes % 15.1 % (21.2-54.2); Mean Corpuscular HGB Conc 32.9 GM/DL (32-36); Mean Corpuscular Volume 86.6 FL (87-102); Mean Platelet Volume 8.9 FL (9.6-12.0); Monocytes # 0.8 10*3/uL (0.11-0.8); Monocytes % 9.6 % (1.7-12.7); Neutrophils % 73.6 % (38.7-73.9); Platelet Count 453 T/CUMM (130-400); Red Blood Count 2.91 MC/CUMM (3.8-5.5); Red Cell Distribution Width 14.7 % (9.3-17.3); White Blood Count 8.7 T/CUMM (4-12)
[2022-03-29 06:09] LABS: Albumin 1.4 G/DL (3.4-5.0); Bilirubin,Total 0.4 MG/DL (0.20-1.00); Calcium 7.5 MG/DL (8.5-10.1); Osmolality,Calculated 272.1 MOS/KG (273-304); Total Protein 7.2 G/DL (6.4-8.2)
[2022-03-29] MEDS: SODIUM HYPOCHLORITE 0.25% IRRIG 473 ML BOTTLE TOP SCH (08:45)
[2022-03-29] MEDS: PANTOPRAZOLE 40 MG TABLET PO SCH (09:47)
[2022-03-29] MEDS: CHOLECALCIFEROL 1,000 UNIT TABLET PO SCH (09:47)
[2022-03-29] MEDS: TAMSULOSIN 0.4 MG CAPSULE PO SCH (09:47)
[2022-03-29] MEDS: METOPROLOL SUCCINATE XL 50 MG TABLET PO SCH (09:47)
[2022-03-29] MEDS: INSULIN GLARGINE 100 UNIT/ML SUBCUT SCH (09:47)
[2022-03-29] MEDS: DOCUSATE SODIUM 100 MG CAPSULE PO SCH ×2 (09:47→20:50)
[2022-03-29] MEDS: GABAPENTIN 100 MG CAPSULE PO SCH ×3 (09:47→20:50)
[2022-03-29] MEDS: cefTRIAXone 2,000 MG in SODIUM CHLORIDE 0.9% 100 ML IV SCH (09:48)
[2022-03-29] MEDS: FERRIC GLUCONATE COMPLEX 125 MG in SODIUM CHLORIDE 0.9% 100 ML IV SCH (10:47)
[2022-03-29] MEDS: ZALEPLON 5 MG CAPSULE PO PRN (20:50)
[2022-03-29] MEDS: amLODIPine 10 MG TABLET PO SCH (20:51)
[2022-03-30] MEDS: LEVOTHYROXINE 50 MCG TABLET PO SCH (05:29)
[2022-03-30 06:40] LABS: Basophils # 0.1 10*3/uL (0.0-0.2); Basophils % 0.5 % (0.0-0.8); Eosinophils # 0.1 10*3/uL (0.0-0.87); Eosinophils % 0.5 % (0.00-10.9); Hematocrit 27.1 VOL% (42.0-52.0); Hemoglobin 8.8 GM/DL (14.0-18.0); Immature Granulocytes % 0.6 %; Immature Granulocytes Absolute 0.06 #; Lymphocytes # 1.6 10*3/uL (1.4-4.0); Lymphocytes % 17.2 % (21.2-54.2); Mean Corpuscular HGB Conc 32.5 GM/DL (32-36); Mean Corpuscular Volume 86.3 FL (87-102); Mean Platelet Volume 9.2 FL (9.6-12.0); Monocytes # 0.9 10*3/uL (0.11-0.8); Monocytes % 9.7 % (1.7-12.7); Neutrophils % 71.5 % (38.7-73.9); Platelet Count 459 T/CUMM (130-400); Red Blood Count 3.14 MC/CUMM (3.8-5.5); Red Cell Distribution Width 14.6 % (9.3-17.3); White Blood Count 9.3 T/CUMM (4-12)
[2022-03-30 07:01] LABS: Albumin 1.5 G/DL (3.4-5.0); Bilirubin,Total 0.4 MG/DL (0.20-1.00); Calcium 7.4 MG/DL (8.5-10.1); Osmolality,Calculated 271.8 MOS/KG (273-304); Potassium 3.8 MMOL/L (3.5-5.1); Total Protein 7.6 G/DL (6.4-8.2)
[2022-03-30] MEDS: INSULIN GLARGINE 100 UNIT/ML SUBCUT SCH (10:09)
[2022-03-30] MEDS: METOPROLOL SUCCINATE XL 50 MG TABLET PO SCH (10:11)
[2022-03-30] MEDS: PANTOPRAZOLE 40 MG TABLET PO SCH (10:11)
[2022-03-30] MEDS: CHOLECALCIFEROL 1,000 UNIT TABLET PO SCH (10:11)
[2022-03-30] MEDS: TAMSULOSIN 0.4 MG CAPSULE PO SCH (10:11)
[2022-03-30] MEDS: GABAPENTIN 100 MG CAPSULE PO SCH ×3 (10:11→20:19)
[2022-03-30] MEDS: cefTRIAXone 2,000 MG in SODIUM CHLORIDE 0.9% 100 ML IV SCH (10:11)
[2022-03-30] MEDS: INSULIN LISPRO 100 UNIT/ML SUBCUT SCH ×3 (12:45→22:12)
[2022-03-30] MEDS: SODIUM HYPOCHLORITE 0.25% IRRIG 473 ML BOTTLE TOP SCH (12:46)
[2022-03-30] MEDS: DOCUSATE SODIUM 100 MG CAPSULE PO SCH ×2 (12:46→20:19)
[2022-03-30] MEDS: SODIUM CHLORIDE 0.9% 1,000 ML IV SCH ×2 (13:17→21:51)
[2022-03-30] MEDS: FERRIC GLUCONATE COMPLEX 125 MG in SODIUM CHLORIDE 0.9% 100 ML IV SCH (13:17)
[2022-03-30] MEDS: amLODIPine 10 MG TABLET PO SCH (20:19)
[2022-03-31] MEDS ORDERED: MORPHINE 2 MG/1 ML SYRINGE IV PRN (00:40)
[2022-03-31] MEDS: ZALEPLON 5 MG CAPSULE PO PRN ×2 (00:52→21:48)
[2022-03-31] MEDS: SODIUM CHLORIDE 0.9% 1,000 ML IV SCH ×3 (04:35→16:45)
[2022-03-31 05:30] LABS: Basophils # 0.1 10*3/uL (0.0-0.2); Basophils % 0.9 % (0.0-0.8); Eosinophils % 0.4 % (0.00-10.9); Hematocrit 26.4 VOL% (42.0-52.0); Hemoglobin 8.3 GM/DL (14.0-18.0); Immature Granulocytes % 0.7 %; Immature Granulocytes Absolute 0.05 #; Lymphocytes # 1.2 10*3/uL (1.4-4.0); Lymphocytes % 15.3 % (21.2-54.2); Mean Corpuscular HGB Conc 31.4 GM/DL (32-36); Mean Platelet Volume 9.2 FL (9.6-12.0); Monocytes # 0.7 10*3/uL (0.11-0.8); Monocytes % 8.6 % (1.7-12.7); Neutrophils % 74.1 % (38.7-73.9); Platelet Count 450 T/CUMM (130-400); Red Cell Distribution Width 14.7 % (9.3-17.3); White Blood Count 7.6 T/CUMM (4-12)
[2022-03-31] MEDS: LEVOTHYROXINE 50 MCG TABLET PO SCH (05:50)
[2022-03-31 05:54] LABS: Alanine Aminotransferase 30 U/L (16-61); Albumin 1.5 G/DL (3.4-5.0); Alkaline Phosphatase 256 U/L (45-117); Aspartate Amino Transferase 36 U/L (0-37); Bilirubin,Total < 0.39 MG/DL (0.20-1.00); Blood Urea Nitrogen 8 MG/DL (7-18); Calcium 7.7 MG/DL (8.5-10.1); Carbon Dioxide 25 MMOL/L (21-32); Chloride 103 MMOL/L (98-107); Glucose 254 MG/DL (74-106); Osmolality,Calculated 276.1 MOS/KG (273-304); Potassium 3.9 MMOL/L (3.5-5.1); Sodium 135 MMOL/L (136-145); Total Protein 7.4 G/DL (6.4-8.2)
[2022-03-31] MEDS: GABAPENTIN 100 MG CAPSULE PO SCH ×3 (09:55→21:56)
[2022-03-31] MEDS: TAMSULOSIN 0.4 MG CAPSULE PO SCH (09:55)
[2022-03-31] MEDS: DOCUSATE SODIUM 100 MG CAPSULE PO SCH ×2 (09:55→21:48)
[2022-03-31] MEDS: PANTOPRAZOLE 40 MG TABLET PO SCH (09:55)
[2022-03-31] MEDS: CHOLECALCIFEROL 1,000 UNIT TABLET PO SCH (09:56)
[2022-03-31] MEDS: FERROUS SULFATE 325 MG TABLET PO SCH ×2 (09:56→21:48)
[2022-03-31] MEDS: METOPROLOL SUCCINATE XL 50 MG TABLET PO SCH (09:56)
[2022-03-31] MEDS: INSULIN LISPRO 100 UNIT/ML SUBCUT SCH ×4 (09:58→21:51)
[2022-03-31] MEDS: POLYETHYLENE GLYCOL POWDER 17 GM PACK PO SCH (09:59)
[2022-03-31] MEDS: INSULIN GLARGINE 100 UNIT/ML SUBCUT SCH (09:59)
[2022-03-31] MEDS: FERRIC GLUCONATE COMPLEX 125 MG in SODIUM CHLORIDE 0.9% 100 ML IV SCH (10:00)
[2022-03-31] MEDS: SODIUM HYPOCHLORITE 0.25% IRRIG 473 ML BOTTLE TOP SCH (10:05)
[2022-03-31] MEDS: amLODIPine 10 MG TABLET PO SCH (21:51)
[2022-04-01] MEDS: SODIUM CHLORIDE 0.9% 1,000 ML IV SCH ×2 (02:30→14:12)
[2022-04-01] MEDS: LEVOTHYROXINE 50 MCG TABLET PO SCH (05:13)
[2022-04-01 05:44] LABS: Basophils # 0.1 10*3/uL (0.0-0.2); Eosinophils % 0.4 % (0.00-10.9); Hematocrit 27.2 VOL% (42.0-52.0); Hemoglobin 8.8 GM/DL (14.0-18.0); Immature Granulocytes % 0.5 %; Immature Granulocytes Absolute 0.04 #; Lymphocytes # 1.5 10*3/uL (1.4-4.0); Lymphocytes % 17.4 % (21.2-54.2); Mean Corpuscular HGB Conc 32.4 GM/DL (32-36); Mean Corpuscular Volume 87.5 FL (87-102); Monocytes # 0.8 10*3/uL (0.11-0.8); Monocytes % 9.6 % (1.7-12.7); Neutrophils % 71.1 % (38.7-73.9); Platelet Count 450 T/CUMM (130-400); Red Blood Count 3.11 MC/CUMM (3.8-5.5); Red Cell Distribution Width 14.8 % (9.3-17.3); White Blood Count 8.4 T/CUMM (4-12)
[2022-04-01 06:16] LABS: Alanine Aminotransferase 29 U/L (16-61); Albumin 1.6 G/DL (3.4-5.0); Alkaline Phosphatase 260 U/L (45-117); Aspartate Amino Transferase 31 U/L (0-37); Bilirubin,Total < 0.39 MG/DL (0.20-1.00); Blood Urea Nitrogen 8 MG/DL (7-18); Calcium 7.8 MG/DL (8.5-10.1); Carbon Dioxide 26 MMOL/L (21-32); Chloride 103 MMOL/L (98-107); Glucose 233 MG/DL (74-106); Osmolality,Calculated 272.2 MOS/KG (273-304); Potassium 4.3 MMOL/L (3.5-5.1); Sodium 134 MMOL/L (136-145); Total Protein 7.8 G/DL (6.4-8.2)
[2022-04-01] MEDS: INSULIN LISPRO 100 UNIT/ML SUBCUT SCH ×4 (09:02→20:51)
[2022-04-01] MEDS: INSULIN GLARGINE 100 UNIT/ML SUBCUT SCH (09:03)
[2022-04-01] MEDS: cefTRIAXone 2,000 MG in SODIUM CHLORIDE 0.9% 100 ML IV SCH (12:31)
[2022-04-01] MEDS ORDERED: LIDOCAINE 2% 5 ML VIAL ONE (14:12)
[2022-04-01] MEDS ORDERED: propofoL 200 MG/20 ML VIAL IV ONE (14:12)
[2022-04-01] MEDS ORDERED: fentaNYL 100 MCG/2 ML VIAL ONE ×2 (14:12→14:20)
[2022-04-01] MEDS ORDERED: MIDAZOLAM 2 MG/2 ML VIAL ONE ×2 (14:13→14:19)
[2022-04-01] MEDS ORDERED: ROPIVACAINE 0.5% 30 ML VIAL ONE (14:13)
[2022-04-01] MEDS ORDERED: LIDOCAINE 1% 5 ML VIAL ONE (14:13)
[2022-04-01] MEDS ORDERED: DEXAMETHASONE 4 MG/1 ML VIAL ONE (14:20)
[2022-04-01] MEDS ORDERED: DEXTROSE 50% 25 GM/50 ML SYRINGE IV ONE (15:29)
[2022-04-01] MEDS ORDERED: PHENYLEPHRINE 1 MG/10 ML SYRINGE IV ONE ×2 (16:54→17:01)
[2022-04-01] MEDS ORDERED: SEVOFLURANE 1 UNIT/15 MINUTE INH ONE (16:54)
[2022-04-01] MEDS ORDERED: PROMETHAZINE INJ 25 MG in SODIUM CHLORIDE 0.9% 50 ML IV PRN (17:23)
[2022-04-01] MEDS ORDERED: ONDANSETRON 4 MG/2 ML VIAL IV PRN (17:23)
[2022-04-01] MEDS ORDERED: HYDROmorphone 1 MG/1 ML SYRINGE IV PRN (17:23)
[2022-04-01] MEDS ORDERED: diphenhydrAMINE 50 MG/1 ML VIAL IV PRN (17:23)
[2022-04-01] MEDS: MEPERIDINE 25 MG/1 ML VIAL IV PRN ×2 (17:25→18:00)
[2022-04-01] MEDS: DOCUSATE SODIUM 100 MG CAPSULE PO SCH ×2 (18:30→20:48)
[2022-04-01] MEDS: TAMSULOSIN 0.4 MG CAPSULE PO SCH (18:30)
[2022-04-01] MEDS: FERROUS SULFATE 325 MG TABLET PO SCH ×2 (18:30→20:48)
[2022-04-01] MEDS: PANTOPRAZOLE 40 MG TABLET PO SCH (18:31)
[2022-04-01] MEDS: POLYETHYLENE GLYCOL POWDER 17 GM PACK PO SCH (18:31)
[2022-04-01] MEDS: METOPROLOL SUCCINATE XL 50 MG TABLET PO SCH (18:31)
[2022-04-01] MEDS: CHOLECALCIFEROL 1,000 UNIT TABLET PO SCH (18:31)
[2022-04-01] MEDS: GABAPENTIN 100 MG CAPSULE PO SCH ×2 (18:31→20:48)
[2022-04-01] MEDS: SODIUM HYPOCHLORITE 0.25% IRRIG 473 ML BOTTLE TOP SCH (18:32)
[2022-04-01] MEDS: ZALEPLON 5 MG CAPSULE PO PRN (20:47)
[2022-04-01] MEDS: amLODIPine 10 MG TABLET PO SCH (20:48)
[2022-04-02] MEDS: LEVOTHYROXINE 50 MCG TABLET PO SCH (05:47)
[2022-04-02 06:19] LABS: Basophils % 0.3 % (0.0-0.8); Hematocrit 25.3 VOL% (42.0-52.0); Hemoglobin 8.1 GM/DL (14.0-18.0); Immature Granulocytes % 0.5 %; Immature Granulocytes Absolute 0.06 #; Lymphocytes # 1.2 10*3/uL (1.4-4.0); Lymphocytes % 11.3 % (21.2-54.2); Mean Corpuscular Volume 86.6 FL (87-102); Mean Platelet Volume 9.1 FL (9.6-12.0); Monocytes # 0.8 10*3/uL (0.11-0.8); Monocytes % 7.5 % (1.7-12.7); Neutrophils % 80.4 % (38.7-73.9); Platelet Count 427 T/CUMM (130-400); Red Blood Count 2.92 MC/CUMM (3.8-5.5); Red Cell Distribution Width 14.7 % (9.3-17.3)
[2022-04-02 06:34] LABS: Calcium 7.7 MG/DL (8.5-10.1); Osmolality,Calculated 277.2 MOS/KG (273-304); Potassium 4.2 MMOL/L (3.5-5.1)
[2022-04-02] MEDS: METOPROLOL SUCCINATE XL 50 MG TABLET PO SCH (09:38)
[2022-04-02] MEDS: FERROUS SULFATE 325 MG TABLET PO SCH ×2 (09:38→22:25)
[2022-04-02] MEDS: INSULIN GLARGINE 100 UNIT/ML SUBCUT SCH (09:39)
[2022-04-02] MEDS: CHOLECALCIFEROL 1,000 UNIT TABLET PO SCH (09:39)
[2022-04-02] MEDS: DOCUSATE SODIUM 100 MG CAPSULE PO SCH ×2 (09:41→22:25)
[2022-04-02] MEDS: GABAPENTIN 100 MG CAPSULE PO SCH ×3 (09:42→22:25)
[2022-04-02] MEDS: TAMSULOSIN 0.4 MG CAPSULE PO SCH (09:42)
[2022-04-02] MEDS: PANTOPRAZOLE 40 MG TABLET PO SCH (09:42)
[2022-04-02] MEDS: POLYETHYLENE GLYCOL POWDER 17 GM PACK PO SCH (09:42)
[2022-04-02] MEDS: SODIUM CHLORIDE 0.9% 1,000 ML IV SCH ×2 (09:43→17:42)
[2022-04-02] MEDS: cefTRIAXone 2,000 MG in SODIUM CHLORIDE 0.9% 100 ML IV SCH (09:44)
[2022-04-02] MEDS: INSULIN LISPRO 100 UNIT/ML SUBCUT SCH ×4 (09:51→22:25)
[2022-04-02] MEDS: SODIUM HYPOCHLORITE 0.25% IRRIG 473 ML BOTTLE TOP SCH (15:59)
[2022-04-02] MEDS: amLODIPine 10 MG TABLET PO SCH (22:25)
[2022-04-02] MEDS: ZALEPLON 5 MG CAPSULE PO PRN (22:25)
[2022-04-03] MEDS: SODIUM CHLORIDE 0.9% 1,000 ML IV SCH ×2 (03:18→14:09)
[2022-04-03] MEDS: LEVOTHYROXINE 50 MCG TABLET PO SCH (06:32)
[2022-04-03] MEDS: cefTRIAXone 2,000 MG in SODIUM CHLORIDE 0.9% 100 ML IV SCH (08:40)
[2022-04-03] MEDS: INSULIN GLARGINE 100 UNIT/ML SUBCUT SCH (08:42)
[2022-04-03] MEDS: INSULIN LISPRO 100 UNIT/ML SUBCUT SCH ×2 (08:43→12:05)
[2022-04-03] MEDS: PANTOPRAZOLE 40 MG TABLET PO SCH (08:43)
[2022-04-03] MEDS: SODIUM HYPOCHLORITE 0.25% IRRIG 473 ML BOTTLE TOP SCH (08:43)
[2022-04-03] MEDS: TAMSULOSIN 0.4 MG CAPSULE PO SCH (08:43)
[2022-04-03] MEDS: CHOLECALCIFEROL 1,000 UNIT TABLET PO SCH (08:43)
[2022-04-03] MEDS: GABAPENTIN 100 MG CAPSULE PO SCH (08:43)
[2022-04-03] MEDS: DOCUSATE SODIUM 100 MG CAPSULE PO SCH (08:43)
[2022-04-03] MEDS: FERROUS SULFATE 325 MG TABLET PO SCH (08:43)
[2022-04-03] MEDS: POLYETHYLENE GLYCOL POWDER 17 GM PACK PO SCH (08:43)
[2022-04-03] MEDS: METOPROLOL SUCCINATE XL 50 MG TABLET PO SCH (08:43)
[2022-04-03 11:41] VITALS: BP 147/68
== END 2022-04-03 15:47 | DRG 853 ==
LOC: N.ED 20:00 → N.EDINP 22:11 → SUATTDRO 22:11 → N.EDINP 23:20 → N.2E 23:32
PROVIDERS: ADMIT Internal Medicine; ATTEND Hospitalist